=== PATIENT | female | born 1955 | race Caucasian/White ===

== ENCOUNTER → 2017-11-19 | Outpatient (CLI) | payer SELFPAY ==
[~2017-11-19] MED LIST: ABAC300; ASCO500 PO; ASPI81CH PO; Azopt10 ML LEFTEYE; CALACE667G PO; CALCIUM 500 +1 EAC2 PO; CALCIUM CARBON PO; CALCIUM PO; CHOL10002 PO; Diclofenac Sod2.5 ML OD; HYDR1TAB94 PO; Humalog100 UNIT/1; INSUASPI SC; INSULANPEN; INSULANPEN SQ; LATA.005SO LEFTEYE; LEVO750 PO; Lisinopril2.5 MG; Lisinopril2.5 MG PO
[2017-11-19 11:23] LABS: Alanine Aminotransfer (ALT/SGP 190 U/L (12-78); Albumin, Blood 3.3 g/dL (3.4-5.0); Albumin/Globulin Ratio 0.9 (0.8-1.8); Alk Phos 774 U/L (50-136); Anion Gap 8 mmol/L (6-16); Aspartate Aminotrans (AST/SGOT 140 U/L (12-37); Blood Urea Nitrogen 22 mg/dL (8-24); Bun/Creatinine Ratio 35.7 (12.0-20.0); CO2, Blood 29 mmol/L (21-32); Chloride, Blood 101 mmol/L (98-108); Creatinine, Blood 0.62 mg/dL (0.40-1.00); Globulin, Blood 3.8 g/dL (2.2-4.0); Glomerular Filtration Rate >60 (60-); Glucose, Blood 218 mg/dL (70-99); Potassium, Blood 4.4 mmol/L (3.5-5.5); Sodium, Blood 138 mmol/L (136-145); Total Protein, Blood 7.1 g/dL (6.4-8.2)
== END ==
LOC: LAB SHORT 10:48
PROVIDERS: Internal Medicine Hematology & Oncology
DX: C64.9 Malignant neoplasm of unspecified kidney, except renal pelvis (principal); R53.83 Other fatigue
CPT/HCPCS: 80053

== ENCOUNTER → 2018-01-30 | Outpatient (CLI) | payer SELFPAY ==
[~2018-01-30] MED LIST changes: -CALCIUM 500 +1 EAC2 PO; -CHOL10002 PO; -Humalog100 UNIT/1; -Lisinopril2.5 MG PO
[2018-02-04 13:10] LABS: HEMATOCRIT 35.3 % (34.0-46.6)
== END ==
LOC: LAB SHORT 15:45 → OLS 15:45
PROVIDERS: Internal Medicine
DX: D75.89 Other specified diseases of blood and blood-forming organs (principal)
CPT/HCPCS: 36415; 82607; 82747; 85014

== ENCOUNTER 2018-11-30 11:29 | Inpatient (IN) | payer OTHER ==
[~2018-11-30] VITALS: Ht 139.7 cm; Wt 46.0 kg
[~2018-11-30 11:29] MED LIST changes: +CALCIUM 500 +1 EAC2 PO; +CHOL10002 PO; +Humalog100 UNIT/1; +Lisinopril2.5 MG PO
[2018-11-30 12:03] LABS: PCO2 Venous 36 mmHg (38-42); PO2 Venous 175 mmHg (38-42); pH Blood Venous 7.21 (7.34-7.37)
[2018-11-30 12:04] LABS: Base Excess Venous -13.2 mmol/L; Bicarbonate Venous 14.9 mmol/L (24.0-30.0)
[2018-11-30 12:15] LABS: BASOPHILS ABSOLUTE AUTO 0.05 K/mm3 (0.00-0.23); BASOPHILS PERCENT AUTO 0 % (0-2); EOSINOPHILS ABSOLUTE AUTO 0.01 K/mm3 (0.00-0.68); EOSINOPHILS PERCENT AUTO 0 % (0-6); Hematocrit 38.3 % (33.0-51.0); IMMATURE GRAN ABSOLUTE AUTO 0.27 K/mm3 (0.00-0.10); IMMATURE GRAN PERCENT AUTO 2 % (0-1); LYMPHOCYTES ABSOLUTE AUTO 0.95 K/mm3 (0.84-5.20); LYMPHOCYTES PERCENT AUTO 6 % (21-46); MONOCYTES ABSOLUTE AUTO 0.92 K/mm3 (0.16-1.47); MONOCYTES PERCENT AUTO 6 % (4-13); Mean Corpuscular HGB 32.6 pg (26.0-34.0); Mean Corpuscular HGB Conc 31.3 g/dL (31.5-36.5); Mean Corpuscular Volume 104 fL (80-100); NEUTROPHILS ABSOLUTE AUTO 13.85 K/mm3 (1.96-9.15); NEUTROPHILS PERCENT AUTO 86 % (41-73); RDW Coefficient Variation 12.5 % (11.7-14.2); RDW Standard Deviation 47.8 fL (35.1-46.3); Red Blood Cell Count 3.68 M/mm3 (3.80-5.20); White Blood Cell Count 16.05 K/mm3 (4.00-11.30)
[2018-11-30 12:19] LABS: Mean Platelet Volume 10.8 fL (9.1-12.4); Platelet Count 234 K/mm3 (150-400)
[2018-11-30 12:42] LABS: Alanine Aminotransfer (ALT/SGP 163 U/L (12-78); Albumin, Blood 3.1 g/dL (3.4-5.0); Albumin/Globulin Ratio 0.7 (0.8-1.8); Alk Phos 766 U/L (50-136); Anion Gap 23 mmol/L (6-16); Aspartate Aminotrans (AST/SGOT 104 U/L (12-37); Bilirubin, Total 2.2 mg/dL (0.1-1.0); Blood Urea Nitrogen 38 mg/dL (8-24); Bun/Creatinine Ratio 53.2 (12.0-20.0); CO2, Blood 15 mmol/L (21-32); Calcium, Blood 9.6 mg/dL (8.5-10.1); Chloride, Blood 95 mmol/L (98-108); Creatinine, Blood 0.71 mg/dL (0.40-1.00); Globulin, Blood 4.5 g/dL (2.2-4.0); Glomerular Filtration Rate >60 (60-); Glucose, Blood 591 mg/dL (70-99); Potassium, Blood 5.2 mmol/L (3.5-5.5); Sodium, Blood 133 mmol/L (136-145); Total Protein, Blood 7.6 g/dL (6.4-8.2)
--- NOTE | 2018-11-30 15:45 | NUR ---
REPORT RECEIVED REPORT RECEIVED FROM TAMMIE COOLEY RN.
[2018-11-30] MEDS ORDERED: METO25ER PO (16:24)
--- NOTE | 2018-11-30 17:01 | NUR ---
PROVIDER COMMUNICATION ORDERS CLARIFIED WITH DR. MARTINEZ FOR FLUIDS. CONFIRMED 2 LITERS BOLUS PLUS 250 ML/HR FOR ONE LITER.
--- NOTE | 2018-11-30 19:00 | NUR ---
ARRIVAL TO ICU PT ARRIVED TO ICU 6 APPROX 1600. INSULIN GTT INFUSING ON ARRIVAL. VITALS STABLE, SEE FLOWSHEET. SEE ASSESSMENT. PT ABLE TO ASSIST WITH COMPLETION OF ADMISSION HX, MED REC BASED OFF MEMORY. MED REC COMPLETED WITH EXCEPTION OF ONE MEDICATION, PT IS UNSURE OF HER RANITIDINE DOSE AND WILL FOLLOW UP WITH HER .
[2018-11-30 19:12] LABS: Anion Gap 23 mmol/L (6-16); Blood Urea Nitrogen 39 mg/dL (8-24); Bun/Creatinine Ratio 58.8 (12.0-20.0); CO2, Blood 10 mmol/L (21-32); Calcium, Blood 8.2 mg/dL (8.5-10.1); Chloride, Blood 103 mmol/L (98-108); Creatinine, Blood 0.66 mg/dL (0.40-1.00); Glomerular Filtration Rate >60 (60-); Glucose, Blood 469 mg/dL (70-99); Magnesium, Blood 1.6 mg/dL (1.6-2.4); Phosphorus, Blood 3.7 mg/dL (2.5-4.9); Potassium, Blood 4.4 mmol/L (3.5-5.5); Sodium, Blood 136 mmol/L (136-145)
--- NOTE | 2018-11-30 20:15 | NUR ---
PROVIDER COMMUNICATION RECEIVED PHONE CALL FROM DR. MARTINEZ REGARDING PT'S LAB VALUES. DR. MARTINEZ UPDATED ON PT'S FLUID STATUS AND NEW ORDER RECEIVED FOR ADDITIONAL NS BOLUS.
[2018-11-30 21:31] LABS: Anion Gap 10 mmol/L (6-16); Blood Urea Nitrogen 34 mg/dL (8-24); Bun/Creatinine Ratio 52.7 (12.0-20.0); CO2, Blood 20 mmol/L (21-32); Calcium, Blood 6.8 mg/dL (8.5-10.1); Chloride, Blood 111 mmol/L (98-108); Creatinine, Blood 0.65 mg/dL (0.40-1.00); Glomerular Filtration Rate >60 (60-); Glucose, Blood 303 mg/dL (70-99); Magnesium, Blood 1.7 mg/dL (1.6-2.4); Phosphorus, Blood 2.4 mg/dL (2.5-4.9); Potassium, Blood 4.4 mmol/L (3.5-5.5); Sodium, Blood 141 mmol/L (136-145)
--- NOTE | 2018-11-30 22:08 | NUR ---
PROVIDER COMMUNICATION DR. JUAREZ CONTACTED ABOUT PT'S CALCIUM AND PHOS. STATES SHE WILL REVIEW AND PUT IN ORDERS.
[2018-11-30 22:33] LABS: Source, Urine Clean Catch
[2018-11-30 22:36] LABS: Bilirubin, Urine Neg (Neg); Blood, Urine Neg (Neg); Glucose Qualitative, Urine 4+ (Neg); Ketones, Urine 3+ (Neg); Leukocyte Esterase, Urine Neg (Neg); Nitrite, Urine Neg (Neg); Protein, Urine 2+ (Neg); Urobilinogen, Urine NORM (Normal)
[2018-11-30 22:42] LABS: Appearance, Urine Clear (Clear); Color, Urine Yellow (P-Yellow); Red Blood Cells, Urine 0-2 /hpf (0-2)
[2018-11-30 22:43] LABS: Bacteria Mod /hpf; Squamous Epithelial Cells Not Seen /hpf (Few)
--- NOTE | 2018-12-01 00:33 | NUR ---
INSULIN GTT TITRATION PT'S INSULIN GTT TITRATED PER BLOOD SUGARS. BLOOD SUGARS NOTED TO INCREASE AFTER INITIATION OF SODIUM PHOS IT IS MIXED IN D5W. [facility]ARM[facility] RE-MIX IN NORMAL SALINE, CONTINUING WITH INFUSION PT WAS NEARING NEED FOR D5W 1/2 NORMAL SALINE PER PARAMETERS SET BY DR. MARTINEZ. INSULIN GTT TITRATED ACCORDINGLY. ANION GAP NOTED TO BE CLOSED, CO2 IMPROVING.
[2018-12-01 01:36] LABS: Chloride, Blood 111 mmol/L (98-108); Potassium, Blood 3.9 mmol/L (3.5-5.5); Sodium, Blood 142 mmol/L (136-145)
[2018-12-01 01:37] LABS: Anion Gap 10 mmol/L (6-16); Blood Urea Nitrogen 31 mg/dL (8-24); Bun/Creatinine Ratio 41.9 (12.0-20.0); CO2, Blood 21 mmol/L (21-32); Calcium, Blood 7.3 mg/dL (8.5-10.1); Creatinine, Blood 0.74 mg/dL (0.40-1.00); Glomerular Filtration Rate >60 (60-); Glucose, Blood 305 mg/dL (70-99); Magnesium, Blood 1.5 mg/dL (1.6-2.4); Phosphorus, Blood 3.9 mg/dL (2.5-4.9)
[2018-12-01 05:09] LABS: BASOPHILS ABSOLUTE AUTO 0.01 K/mm3 (0.00-0.23); BASOPHILS PERCENT AUTO 0 % (0-2); EOSINOPHILS ABSOLUTE AUTO 0.01 K/mm3 (0.00-0.68); EOSINOPHILS PERCENT AUTO 0 % (0-6); Hematocrit 29.3 % (33.0-51.0); Hemoglobin 9.4 g/dL (11.5-16.0); IMMATURE GRAN ABSOLUTE AUTO 0.11 K/mm3 (0.00-0.10); IMMATURE GRAN PERCENT AUTO 1 % (0-1); LYMPHOCYTES ABSOLUTE AUTO 1.12 K/mm3 (0.84-5.20); LYMPHOCYTES PERCENT AUTO 7 % (21-46); MONOCYTES ABSOLUTE AUTO 1.24 K/mm3 (0.16-1.47); MONOCYTES PERCENT AUTO 8 % (4-13); Mean Corpuscular HGB 32.5 pg (26.0-34.0); Mean Corpuscular HGB Conc 32.1 g/dL (31.5-36.5); Mean Platelet Volume 9.9 fL (9.1-12.4); NEUTROPHILS ABSOLUTE AUTO 13.65 K/mm3 (1.96-9.15); NEUTROPHILS PERCENT AUTO 85 % (41-73); Platelet Count 131 K/mm3 (150-400); RDW Coefficient Variation 12.8 % (11.7-14.2); RDW Standard Deviation 47.9 fL (35.1-46.3); Red Blood Cell Count 2.89 M/mm3 (3.80-5.20); White Blood Cell Count 16.14 K/mm3 (4.00-11.30)
[2018-12-01 05:16] LABS: Mean Corpuscular Volume 101 fL (80-100)
[2018-12-01 05:39] LABS: Anion Gap 10 mmol/L (6-16); Blood Urea Nitrogen 27 mg/dL (8-24); Bun/Creatinine Ratio 36.7 (12.0-20.0); CO2, Blood 19 mmol/L (21-32); Calcium, Blood 7.3 mg/dL (8.5-10.1); Chloride, Blood 111 mmol/L (98-108); Creatinine, Blood 0.74 mg/dL (0.40-1.00); Glomerular Filtration Rate >60 (60-); Glucose, Blood 211 mg/dL (70-99); Magnesium, Blood 1.7 mg/dL (1.6-2.4); Phosphorus, Blood 3.5 mg/dL (2.5-4.9); Potassium, Blood 3.5 mmol/L (3.5-5.5); Sodium, Blood 140 mmol/L (136-145)
--- NOTE | 2018-12-01 06:34 | NUR ---
SUMMARY SINCE PREVIOUS NOTE, PT HAS BEEN PLACED ON D5 1/2 NS PER ORDERS. INSULIN GTT TITRATED PER BLOOD SUGARS. VITALS STABLE. SEE ASSESSMENTS/FLOWSHEETS.
--- NOTE | 2018-12-01 08:00 | NUR ---
INITIAL ASSESSMENT PATIENT RESTING QUIETLY IN BED UPON ENTERING ROOM. PATIENT ALERT AND ORIENTED X 4, AFEBRILE. PATIENT WEAK, SBA WHEN OOB. PATIENT INDEPENDENT IN BED. PATIENT AFEBRILE. PATIENT DENIES PAIN AT THIS TIME. PATIENT SATTING OVER 90% ON RA. LUNGS CLEAR THROUGHOUT. PATIENT REPORTS OCCASIONAL, NONPRODUCTIVE COUGH. PATIENT HAS SLIGHT SOB WITH EXERTION. PATIENT IN SR WITH PACS. SLIGHT ST DEPRESSION NOTED. HR IN THE 80S, BP STABLE. PULSES 1+ IN STRENGTH. NO EDEMA NOTED. GI WNL. WNL. 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 PATIENT HAS SCATTERED BRUISES AND SCABS. INSULIN INFUSING AT 2 UNITS/ HOUR. BED LOW, CALL LIGHT IN REACH. WILL CONTINUE TO MONITOR PATIENT FREQUENTLY THROUGHOUT SHIFT.
[2018-12-01] MEDS ORDERED: Zantac150 MG PO (08:38)
--- NOTE | 2018-12-01 08:50 | NUR ---
DR. MARTINEZ IN TO SEE PATIENT. DR INFORMED OF ST DEPRESSION, OF LOW CALCIUM LEVEL AND THAT PATIENT TAKES METOPROLOL AT HOME. ORDERS RECEIVED.
--- NOTE | 2018-12-01 12:00 | NUR ---
PATIENT WATCHING TV IN BED. NO COMPLAINTS. AFEBRILE. PATIENT REMAINS SATTING WELL ON RA. PATIENT IN SR WITH PACS. HR IN THE 70S. BP STABLE. PATIENT COVERED WITH SLIDING SCALE INSULIN. DRIP TURNED OFF EARLIER IN THE SHIFT. NO OTHER ACUTE CHANGES TO NOTE ON AT THIS TIME. WILL CONTINUE TO MONITOR.
[2018-12-01 12:24] LABS: Albumin, Blood 2.2 g/dL (3.4-5.0); Anion Gap 9 mmol/L (6-16); Blood Urea Nitrogen 23 mg/dL (8-24); Bun/Creatinine Ratio 32.8 (12.0-20.0); CO2, Blood 18 mmol/L (21-32); Calcium, Blood 7.4 mg/dL (8.5-10.1); Chloride, Blood 111 mmol/L (98-108); Glomerular Filtration Rate >60 (60-); Glucose, Blood 269 mg/dL (70-99); Magnesium, Blood 1.6 mg/dL (1.6-2.4); Phosphorus, Blood 2.5 mg/dL (2.5-4.9); Potassium, Blood 4.1 mmol/L (3.5-5.5); Sodium, Blood 138 mmol/L (136-145)
[2018-12-01 15:13] LABS: Influenza A Negative (NEGATIVE); Influenza B Negative (NEGATIVE)
--- NOTE | 2018-12-01 16:52 | NUR ---
RESTING IN BED, VISITING WITH AND WATCHING TV UPON ENTERING ROOM. PATIENT AFEBRILE. PATIENT HAS NO COMPLAINTS OF PAIN. PATIENT REMAINS SATTING WELL ON RA. PATIENT IN SR WITH PACS, HR IN THE 60S. BP STABLE. PATIENT GIVEN SLIDING SCALE INSULIN COVERAGE FOR BS OF 277. NO OTHER ACUTE CHANGES TO NOTE ON AT THIS TIME. WILL CONTINUE TO MONITOR.
--- NOTE | 2018-12-01 18:46 | NUR ---
SHIFT SUMMARY PATIENT REMAINED ALERT AND ORIENTED X 4, AFEBRILE. PATIENT HAD NO COMPLAINTS OF PAIN, EXCEPT SLIGHT SORE THROAT. PATIENT STATES THAT HER HAS BEEN SICK WITH A COLD AT HOME. PATIENT GIVEN LONG ACTING INSULIN THIS AM AND INSULIN DRIP TURNED OFF 1 HOUR LATER. BLOOD SUGARS HAVE BEEN 100S TO 200S. PATIENT ON ACHS- MEDIUM SLIDING SCALE. PATIENT WEAKER THAN USUAL BUT AMBULATING WELL WITH SBA. PATIENT REMAINED SATTING WELL ON RA. PATIENT LUNGS REMAINED CLEAR THROUGHOUT. PATIENT HAS SLIGHT SOB WITH EXERTION. PATIENT REMAINED IN SR WITH PACS, HR 60S TO 80S. BP STABLE. GI REMAINED WNL. PATIENT TOLERATING ADA DIET WELL. REMAINED WNL. NO CHANGES TO SKIN. NS KCL INFUSING AT 100 MLS/ HOUR. PATIENT GIVEN 1 G CALCIUM GLUCONATE THIS SHIFT. INFLUENZA LAB SENT AND CAME BACK NEGATIVE FOR INFLUENZA A AND B. PATIENT HAD SHOWER THIS SHIFT WITH HELP OF ORCHESTRA DIRECTOR. FAMILY MEMBERS IN TO VISIT TODAY. BED LOW, CALL LIGHT IN REACH. WILL CONTINUE TO MONITOR FREQUENTLY UNTIL REPORT GIVEN TO ONCOMING SENIOR SEARCH MARKETING ANALYST NURSE SHORTLY.
--- NOTE | 2018-12-01 20:17 | NUR ---
CARE ASSUMED REPORT RECEIVED, CARE ASSUMED FROM VAISHNAVI CORTEZ. PT AWAKE WATCHING TELEVISION ON NURSING ROUNDS. PROVIDED WITH TEA PER REQUEST. VITALS STABLE. SEE ASSESSMENT. PT AGREES TO USE CALL LIGHT FOR NEEDS.
[2018-12-02 03:53] LABS: BASOPHILS ABSOLUTE AUTO 0.01 K/mm3 (0.00-0.23); BASOPHILS PERCENT AUTO 0 % (0-2); EOSINOPHILS ABSOLUTE AUTO 0.13 K/mm3 (0.00-0.68); EOSINOPHILS PERCENT AUTO 1 % (0-6); Hematocrit 29.9 % (33.0-51.0); Hemoglobin 9.7 g/dL (11.5-16.0); IMMATURE GRAN ABSOLUTE AUTO 0.07 K/mm3 (0.00-0.10); IMMATURE GRAN PERCENT AUTO 1 % (0-1); LYMPHOCYTES PERCENT AUTO 18 % (21-46); MONOCYTES ABSOLUTE AUTO 0.66 K/mm3 (0.16-1.47); MONOCYTES PERCENT AUTO 7 % (4-13); Mean Corpuscular HGB 32.2 pg (26.0-34.0); Mean Corpuscular HGB Conc 32.4 g/dL (31.5-36.5); Mean Corpuscular Volume 99 fL (80-100); Mean Platelet Volume 9.8 fL (9.1-12.4); NEUTROPHILS ABSOLUTE AUTO 6.51 K/mm3 (1.96-9.15); NEUTROPHILS PERCENT AUTO 73 % (41-73); Platelet Count 121 K/mm3 (150-400); RDW Standard Deviation 47.2 fL (35.1-46.3); Red Blood Cell Count 3.01 M/mm3 (3.80-5.20); White Blood Cell Count 8.98 K/mm3 (4.00-11.30)
[2018-12-02 04:13] LABS: Albumin, Blood 2.1 g/dL (3.4-5.0); Anion Gap 7 mmol/L (6-16); Blood Urea Nitrogen 15 mg/dL (8-24); Bun/Creatinine Ratio 23.7 (12.0-20.0); CO2, Blood 22 mmol/L (21-32); Calcium, Blood 8.4 mg/dL (8.5-10.1); Chloride, Blood 114 mmol/L (98-108); Creatinine, Blood 0.63 mg/dL (0.40-1.00); Glomerular Filtration Rate >60 (60-); Glucose, Blood 144 mg/dL (70-99); Magnesium, Blood 1.6 mg/dL (1.6-2.4); Phosphorus, Blood 2.2 mg/dL (2.5-4.9); Sodium, Blood 143 mmol/L (136-145)
--- NOTE | 2018-12-02 06:03 | NUR ---
SUMMARY VITALS STABLE THROUGHOUT NIGHT. ASSESSMENT UNCHANGED. PT HAS SLEPT SOUNDLY THROUGHOUT NIGHT, CALLING FOR NEEDS.
--- NOTE | 2018-12-02 07:52 | NUR ---
INITIAL ASSESSMENT PATIENT RESTING QUIETLY IN BED UPON ENTERING ROOM. PATIENT ALERT AND ORIENTED X 4, AFEBRILE. PATIENT INDEPENDENT IN ROOM. PATIENT HAS NO COMPLAINTS OF PAIN AT THIS TIME. PATIENT SATTING OVER 90% ON RA. LUNGS CLEAR THROUGHOUT. PATIENT HAS OCCASIONAL, NONPRODUCTIVE COUGH. HR IN THE 60S. BP STABLE. GI WNL. WNL. MIDSTERNAL SCAR NOTED. SCATTERED SCABS AND BRUISES NOTED. IVS FLUSHED AND SALINE LOCKED. BED LOW, CALL LIGHT IN REACH. WILL CONTINUE TO MONITOR PATIENT FREQUENTLY THROUGHOUT SHIFT.
[2018-12-02] MEDS ORDERED: ASCO500 PO (11:09)
[2018-12-02] MEDS ORDERED: Humalog100 UNIT/1 SC (11:18)
[2018-12-02] MEDS ORDERED: BENMENLOZ MT (11:20)
[2018-12-02] MEDS ORDERED: Lisinopril2.5 MG PO (11:21)
[2018-12-02] MEDS ORDERED: Acidophilus La100 GM PO (11:22)
[2018-12-02] MEDS ORDERED: LEVFLO500 PO (11:23)
[2018-12-02] MEDS ORDERED: TOUJEO SOL300 UNIT/1 SC (11:29)
--- NOTE | 2018-12-02 11:47 | NUR ---
DR. MARTINEZ INFORMED OF PATIENT'S BLOOD SUGAR OF 474. ALSO INFORMED THAT THE [facility] THAT IS RUNNING HAS DEXTROSE 5% IN IT. ORDERS RECEIVED.
[2018-12-02] MEDS ORDERED: SACC250C PO (11:52)
--- NOTE | 2018-12-02 12:16 | NUR ---
PATIENT SITTING IN BED EATING LUNCH. PATIENT HAS NO COMPLAINTS AT THIS TIME. PATIENT GIVEN SCHEDULED AND ADDITIONAL OT COVERAGE FOR BLOOD SUGAR OF 474. KPHOS WITH DEXTROSE CONTINUES TO INFUSE. NO OTHER ACUTE CHANGES TO NOTE ON AT THIS TIME. WILL CONTINUE TO MONITOR.
--- NOTE | 2018-12-02 14:34 | NUR ---
DR. MARTINEZ INFORMED THAT PATIENT'S BS IS NOW 375. ALSO INFORMED THAT KPHOS WITH DEXTROSE FINISHED SHORT TIME AGO. DOCTOR STATED TO GIVE INSULIN LISPRO BY [facility] AND THEN PATIENT ABLE TO BE DISCHARGED.
--- NOTE | 2018-12-02 15:02 | NUR ---
SHIFT SUMMARY PATIENT REMAINED ALERT AND ORIENTED T/O SHIFT. PATIENT REMAINED AFEBRILE AND HAD NO COMPLAINTS OF PAIN. PATIENT REMAINED SATTING WELL ON RA. PATIENT HR AND BP STABLE/ WNL. GI WNL. PATIENT HAD BM THIS SHIFT. WNL. NO CHANGE IN SKIN. PATIENT RECEIVED 30 MM KPHOS FOR LOW PHOS LEVEL OF 2.2 THIS AM. PATIENT COVERED WITH INSULIN LISPRO ON MEDIUM SLIDING SCALE ACHS. PATIENT BLOOD SUGARS INCREASED WHILE ON KPHOS INFUSING INFUSION ALSO HAS DEXTROSE 5% IN IT. DR. MARTINEZ INFORMED AND INSULIN GIVEN ACCORDINGLY. HERE TO NEUROSCIENCE SPECIALIST PATIENT. IVS REMOVED. PATIENT GIVEN DISCHARGE INFORMATION AND STATED THAT SHE UNDERSTOOD DIRECTIONS AND HAD NO FURTHER QUESTIONS. PATIENT TAKEN OUT TO TRUCK IN WHEELCHAIR AT 1502.
== END 2018-12-02 14:58 | disposition home or self-care (01) | DRG 871 ==
LOC: ER 11:29 → ERHOLD 13:38 → ICUE 13:38
PROVIDERS: Physician Assistant; ADMIT Internal Medicine
DX: A41.9 Sepsis, unspecified organism (principal); E10.10 Type 1 diabetes mellitus with ketoacidosis without coma; J18.1 Lobar pneumonia, unspecified organism; J69.0 Pneumonitis due to inhalation of food and vomit; T85.694A Other mechanical complication of insulin pump, initial encounter; E87.1 Hypo-osmolality and hyponatremia; R65.20 Severe sepsis without septic shock; E10.59 Type 1 diabetes mellitus with other circulatory complications; E83.39 Other disorders of phosphorus metabolism; E83.42 Hypomagnesemia; I25.10 Atherosclerotic heart disease of native coronary artery without angina pectoris; M25.511 Pain in right shoulder; M25.512 Pain in left shoulder; M81.0 Age-related osteoporosis without current pathological fracture; Z95.1 Presence of aortocoronary bypass graft; I10 Essential (primary) hypertension; K21.9 Gastro-esophageal reflux disease without esophagitis
CPT/HCPCS: 36415; 71045; 71046; 80048; 80053; 80069; 81001; 82330; 82803; 82947; 83036; 83605; 83735; 84100; 84145; 84484; 85025; 87086; 87804; 93005; 93010; 96361; 96365; 96367; 96375; 96376; 99285-25; C9113; J0456; J0610; J0696; J1650; J1815; J1956; J2405; J3480; J7030; J7042; J7050; J7060

== ENCOUNTER → 2019-02-09 | Outpatient (CLI) | payer OTHER ==
[~2019-02-09] MED LIST changes: +Acidophilus La100 GM PO; +BENMENLOZ MT; +Humalog100 UNIT/1 SC; +LEVFLO500 PO; +METO25ER PO; +SACC250C PO; +TOUJEO SOL300 UNIT/1 SC; +Zantac150 MG PO
[2019-02-09 10:56] LABS: Alanine Aminotransfer (ALT/SGP 148 U/L (12-78); Albumin, Blood 3.2 g/dL (3.4-5.0); Albumin/Globulin Ratio 0.8 (0.8-1.8); Alk Phos 746 U/L (50-136); Anion Gap 5 mmol/L (6-16); Aspartate Aminotrans (AST/SGOT 90 U/L (12-37); Bilirubin, Total 1.1 mg/dL (0.1-1.0); Blood Urea Nitrogen 29 mg/dL (8-24); Bun/Creatinine Ratio 47.5 (12.0-20.0); CO2, Blood 30 mmol/L (21-32); Calcium, Blood 9.3 mg/dL (8.5-10.1); Chloride, Blood 103 mmol/L (98-108); Creatinine, Blood 0.61 mg/dL (0.40-1.00); Globulin, Blood 3.8 g/dL (2.2-4.0); Glomerular Filtration Rate >60 (60-); Glucose, Blood 122 mg/dL (70-99); Sodium, Blood 138 mmol/L (136-145)
== END | disposition home or self-care (01) ==
LOC: LAB 10:26 → LAB SHORT 10:26
PROVIDERS: Internal Medicine Hematology & Oncology
DX: C64.9 Malignant neoplasm of unspecified kidney, except renal pelvis (principal); M81.0 Age-related osteoporosis without current pathological fracture
CPT/HCPCS: 80053

== ENCOUNTER → 2019-04-05 | Outpatient (CLI) | payer OTHER | END | disposition home or self-care (01) | LOC: PLD 08:45 → LAB SHORT 08:45 | DX: L57.0 Actinic keratosis (principal) | CPT/HCPCS: 88305 ==

== ENCOUNTER → 2019-06-03 | Outpatient (CLI) | payer OTHER ==
[2019-06-03 13:21] LABS: Microalb/Creat Ratio UR, Rand Unable to Calculate mg/g (0.000-30.000); Microalbumin, Random Urine <5.000 mg/L (0.000-20.000)
== END | disposition home or self-care (01) ==
LOC: LAB SHORT 08:00 → LAB 08:00
PROVIDERS: Internal Medicine
DX: Z11.59 Encounter for screening for other viral diseases (principal); E11.8 Type 2 diabetes mellitus with unspecified complications; E55.9 Vitamin D deficiency, unspecified; E78.5 Hyperlipidemia, unspecified; Z79.899 Other long term (current) drug therapy
CPT/HCPCS: 82043; 82570

== ENCOUNTER 2019-06-24 09:36 | Day surgery (SDC) | payer OTHER ==
[~2019-06-24] VITALS: Ht 142.2 cm; Wt 40.2 kg
--- NOTE | 2019-06-24 11:50 | NUR ---
06/24/19 1150 Nicolasa Peterson DONE IN PRE OP BY DR AGEE WITH SONOSITE. PT'S HEART RATE AND O2 SATS MONITORED THROUGHOUT. PT TOLERATED PROCEDURE WELL.
--- NOTE | 2019-06-24 13:53 | NUR ---
06/24/19 1353 Maggie Daniels PT TRANSFERED WELL FROM BED TO RECLINER. PT HAS ARM SLING ON. PT DENIES ANY PAIN, PT DENIES ANY N/V. VS WNL. PT FAMILY AT CHAIR SIDE CONVERSING WITH PT. PT SMILING AND TOLERATING COFFEE. PT C/O UNABLE TO MOVE RIGHT ARM, RN RE-ASSURED PT THAT SHE HAS A SLING ON AND THAT DR. AGEE HAD PLACED A NUMBING BLOCK ON THAT ARM. PT ABLE TO HAVE SENSATION ON RIGHT UPPER ARM. PT AT THIS TIME, UNABLE TO MOVE FINGERS ON RIGHT HAND. WILL CONTINUE TO MONITOR. CAP RE-FILL ON RIGHT HAND LESS THAN 3SECS. WILL CONTINUE TO MONITOR PT.
== END 2019-06-24 15:09 | disposition home or self-care (01) ==
LOC: ORSCSDS 09:36
PROVIDERS: Orthopaedic Surgery
PROC: 0LQ14ZZ Repair Right Shoulder Tendon, Percutaneous Endoscopic Approach (ICD-10-PCS; principal; 2019-06-24 11:00)
PROC: 0RNJ4ZZ Release Right Shoulder Joint, Percutaneous Endoscopic Approach (ICD-10-PCS; principal; 2019-06-24 11:00)
DX: S46.001A Unspecified injury of muscle(s) and tendon(s) of the rotator cuff of right shoulder, initial encounter (principal); M75.41 Impingement syndrome of right shoulder; M75.21 Bicipital tendinitis, right shoulder; M65.811 Other synovitis and tenosynovitis, right shoulder; E10.9 Type 1 diabetes mellitus without complications; I10 Essential (primary) hypertension; Z79.4 Long term (current) use of insulin; Z79.82 Long term (current) use of aspirin; Z79.899 Other long term (current) drug therapy
CPT/HCPCS: 82947; C1713; J0171; J0690; J2250; J2704; J3010; J7120

== ENCOUNTER 2020-03-22 19:54 | Emergency (ER) | payer OTHER ==
[~2020-03-22] VITALS: Ht 139.7 cm; Wt 41.3 kg
[~2020-03-22 19:54] MED LIST changes: +BASAGLAR K100 UNIT/1 SC; +EYEDROPS; +FAMO20 PO; +HUMALOG KW200 UNIT/1 SC
[2020-03-22 20:52] LABS: BASOPHILS ABSOLUTE AUTO 0.04 K/mm3 (0.00-0.23); BASOPHILS PERCENT AUTO 1 % (0-2); EOSINOPHILS ABSOLUTE AUTO 0.07 K/mm3 (0.00-0.68); EOSINOPHILS PERCENT AUTO 1 % (0-6); Hemoglobin 11.9 g/dL (11.5-16.0); IMMATURE GRAN ABSOLUTE AUTO 0.05 K/mm3 (0.00-0.10); IMMATURE GRAN PERCENT AUTO 1 % (0-1); LYMPHOCYTES ABSOLUTE AUTO 1.27 K/mm3 (0.84-5.20); LYMPHOCYTES PERCENT AUTO 18 % (21-46); MONOCYTES ABSOLUTE AUTO 0.68 K/mm3 (0.16-1.47); MONOCYTES PERCENT AUTO 10 % (4-13); Mean Corpuscular HGB 32.4 pg (26.0-34.0); Mean Corpuscular HGB Conc 32.2 g/dL (31.5-36.5); Mean Corpuscular Volume 101 fL (80-100); Mean Platelet Volume 10.7 fL (9.1-12.4); NEUTROPHILS ABSOLUTE AUTO 4.98 K/mm3 (1.96-9.15); NEUTROPHILS PERCENT AUTO 70 % (41-73); Platelet Count 193 K/mm3 (150-400); RDW Coefficient Variation 12.6 % (11.7-14.2); RDW Standard Deviation 45.9 fL (35.1-46.3); Red Blood Cell Count 3.67 M/mm3 (3.80-5.20); White Blood Cell Count 7.09 K/mm3 (4.00-11.30)
[2020-03-22 20:57] LABS: Base Excess Venous 2.2 mmol/L; PCO2 Venous 42.4 mmHg (38-42); PO2 Venous 62.1 mmHg (38-42); pH Blood Venous 7.41 (7.34-7.37)
[2020-03-22] MEDS ORDERED: TOUJEO SOL300 UNIT/2 SC (21:25)
[2020-03-22 21:44] LABS: Alanine Aminotransfer (ALT/SGP 117 U/L (12-78); Albumin, Blood 3.1 g/dL (3.4-5.0); Albumin/Globulin Ratio 0.7 (0.8-1.8); Alk Phos 778 U/L (50-136); Anion Gap 9 mmol/L (6-16); Aspartate Aminotrans (AST/SGOT 65 U/L (12-37); Bilirubin, Total 0.8 mg/dL (0.1-1.0); Blood Urea Nitrogen 31 mg/dL (8-24); Bun/Creatinine Ratio 44.5 (12.0-20.0); CO2, Blood 23 mmol/L (21-32); Calcium, Blood 8.8 mg/dL (8.5-10.1); Chloride, Blood 98 mmol/L (98-108); Globulin, Blood 4.6 g/dL (2.2-4.0); Glomerular Filtration Rate >60 (60-); Glucose, Blood 464 mg/dL (70-99); Potassium, Blood 4.7 mmol/L (3.5-5.5); Sodium, Blood 130 mmol/L (136-145); Total Protein, Blood 7.7 g/dL (6.4-8.2)
== END 2020-03-22 23:08 | disposition home or self-care (01) ==
LOC: ER 19:54
PROVIDERS: Emergency Medicine
DX: E10.65 Type 1 diabetes mellitus with hyperglycemia (principal); Z88.8 Allergy status to other drugs, medicaments and biological substances; Z79.82 Long term (current) use of aspirin; Z79.899 Other long term (current) drug therapy; I25.10 Atherosclerotic heart disease of native coronary artery without angina pectoris; I10 Essential (primary) hypertension; K21.9 Gastro-esophageal reflux disease without esophagitis
CPT/HCPCS: 36415; 80053; 82803; 82947; 85025; 96360; 99284-25; J1815; J7030

== ENCOUNTER → 2020-12-22 | Outpatient (CLI) | payer OTHER ==
[~2020-12-22] MED LIST changes: +REPATHA SU140 MG/1 M SC; +TOUJEO SOL300 UNIT/2 SC
[2020-12-22 16:10] LABS: Creatinine, Urine Random 94.6 mg/dL (27.00-270.00); Microalb/Creat Ratio UR, Rand 11.311 mg/g (0.000-30.000); Microalbumin, Random Urine 10.7 mg/L (0.000-20.000)
== END | disposition home or self-care (01) ==
LOC: LAB 10:25 → LAB SHORT 10:25 → LAB FUT 11-06 08:45
PROVIDERS: Internal Medicine
DX: E55.9 Vitamin D deficiency, unspecified (principal); I10 Essential (primary) hypertension; Z79.899 Other long term (current) drug therapy
CPT/HCPCS: 82043; 82570

== ENCOUNTER → 2021-02-05 | Outpatient (CLI) | payer OTHER ==
[2021-02-09 10:09] LABS: IMMUNOGLOBULIN A, QN, SERUM 185 mg/dL (87-352); IMMUNOGLOBULIN G, QN, SERUM 531 mg/dL (586-1602); IMMUNOGLOBULIN M, QN, SERUM 1499 mg/dL (26-217); PROTEIN, TOTAL, SERUM 6.6 g/dL (6.0-8.5)
== END | disposition home or self-care (01) ==
LOC: LAB SHORT 10:30 → PLD 10:30
PROVIDERS: Internal Medicine Hematology & Oncology
DX: D47.2 Monoclonal gammopathy (principal)
CPT/HCPCS: 82784; 84165; 86334

== ENCOUNTER → 2021-04-24 | Outpatient (CLI) | payer OTHER | END | disposition home or self-care (01) | LOC: LAB SHORT 11:25 | DX: L82.1 Other seborrheic keratosis (principal) | CPT/HCPCS: 88305 ==

== ENCOUNTER → 2021-06-15 | Outpatient (CLI) | payer OTHER ==
[2021-06-15 11:09] LABS: Alanine Aminotransfer (ALT/SGP 104 U/L (12-78); Albumin, Blood 3.3 g/dL (3.4-5.0); Albumin/Globulin Ratio 0.8 (0.8-1.8); Alk Phos 639 U/L (50-136); Anion Gap 6 mmol/L (6-16); Aspartate Aminotrans (AST/SGOT 63 U/L (12-37); Blood Urea Nitrogen 25 mg/dL (8-24); Bun/Creatinine Ratio 32.2 (12.0-20.0); CO2, Blood 28 mmol/L (21-32); Calcium, Blood 9.6 mg/dL (8.5-10.1); Chloride, Blood 106 mmol/L (98-108); Creatinine, Blood 0.78 mg/dL (0.40-1.00); Glomerular Filtration Rate >60 (60-); Phosphorus, Blood 4.1 mg/dL (2.5-4.9); Potassium, Blood 3.9 mmol/L (3.5-5.5); Sodium, Blood 140 mmol/L (136-145); Total Protein, Blood 7.3 g/dL (6.4-8.2)
[2021-06-15 11:11] LABS: Glucose, Blood 39 mg/dL (70-99)
== END | disposition home or self-care (01) ==
LOC: LAB 10:33 → LAB SHORT 10:33
PROVIDERS: Internal Medicine Hematology & Oncology
DX: D47.2 Monoclonal gammopathy (principal)
CPT/HCPCS: 80053; 84100

== ENCOUNTER 2021-09-17 19:01 | Emergency (ER) | payer OTHER ==
[~2021-09-17] VITALS: Ht 139.7 cm; Wt 42.2 kg
[2021-09-17 20:31] LABS: BASOPHILS ABSOLUTE AUTO 0.04 K/mm3 (0.00-0.23); BASOPHILS PERCENT AUTO 0 % (0-2); EOSINOPHILS ABSOLUTE AUTO 0.02 K/mm3 (0.00-0.68); EOSINOPHILS PERCENT AUTO 0 % (0-6); Hematocrit 37.4 % (33.0-51.0); Hemoglobin 12.5 g/dL (11.5-16.0); IMMATURE GRAN ABSOLUTE AUTO 0.09 K/mm3 (0.00-0.10); IMMATURE GRAN PERCENT AUTO 1 % (0-1); LYMPHOCYTES ABSOLUTE AUTO 0.82 K/mm3 (0.84-5.20); LYMPHOCYTES PERCENT AUTO 5 % (21-46); MONOCYTES ABSOLUTE AUTO 0.93 K/mm3 (0.16-1.47); MONOCYTES PERCENT AUTO 6 % (4-13); Mean Corpuscular HGB 31.1 pg (26.0-34.0); Mean Corpuscular HGB Conc 33.4 g/dL (31.5-36.5); Mean Corpuscular Volume 93 fL (80-100); NEUTROPHILS ABSOLUTE AUTO 13.85 K/mm3 (1.96-9.15); NEUTROPHILS PERCENT AUTO 88 % (41-73); RDW Coefficient Variation 12.7 % (11.7-14.2); RDW Standard Deviation 44.1 fL (35.1-46.3); Red Blood Cell Count 4.02 M/mm3 (3.80-5.20); White Blood Cell Count 15.75 K/mm3 (4.00-11.30)
[2021-09-17 20:40] LABS: Source, Urine Clean Catch
[2021-09-17 20:42] LABS: Bilirubin, Urine Neg (Neg); Blood, Urine 2+ (Neg); Glucose Qualitative, Urine 1+ (Neg); Ketones, Urine 1+ (Neg); Leukocyte Esterase, Urine 1+ (Neg); Nitrite, Urine Neg (Neg); Protein, Urine 1+ (Neg); Specific Gravity, Urine 1.025 (1.003-1.022); Urobilinogen, Urine 1+ (Normal)
[2021-09-17 20:52] LABS: Appearance, Urine Clear (Clear); Color, Urine Yellow (P-Yellow)
[2021-09-17 20:56] LABS: Amorphous Light (0-Heavy); Bacteria Few /hpf; Mucus Light (0-Heavy); Squamous Epithelial Cells Rare /hpf (Few)
[2021-09-17 20:59] LABS: Mean Platelet Volume 10.9 fL (9.1-12.4); Platelet Count 160 K/mm3 (150-400)
[2021-09-17] MEDS ORDERED: TOUJEO MAX300 UNIT/2 SC (21:05)
[2021-09-17] MEDS ORDERED: HUMALOG KW200 UNIT/2 SC (21:06)
[2021-09-17 21:10] LABS: Alanine Aminotransfer (ALT/SGP 117 U/L (12-78); Albumin, Blood 3.1 g/dL (3.4-5.0); Albumin/Globulin Ratio 0.8 (0.8-1.8); Alk Phos 657 U/L (50-136); Anion Gap 10 mmol/L (6-16); Aspartate Aminotrans (AST/SGOT 73 U/L (12-37); Blood Urea Nitrogen 24 mg/dL (8-24); Bun/Creatinine Ratio 34.6 (12.0-20.0); CO2, Blood 26 mmol/L (21-32); Calcium, Blood 9.2 mg/dL (8.5-10.1); Chloride, Blood 101 mmol/L (98-108); Creatinine, Blood 0.69 mg/dL (0.40-1.00); Globulin, Blood 4.1 g/dL (2.2-4.0); Glomerular Filtration Rate >60 (60-); Glucose, Blood 223 mg/dL (70-99); Potassium, Blood 4.2 mmol/L (3.5-5.5); Sodium, Blood 137 mmol/L (136-145); Total Protein, Blood 7.2 g/dL (6.4-8.2)
[2021-09-18] MEDS ORDERED: AMOCLA875 PO (00:21)
[2021-09-18] MEDS ORDERED: ONDA4ODT MM (00:21)
== END 2021-09-18 00:48 | disposition home or self-care (01) ==
LOC: ER 19:01
PROVIDERS: Physician Assistant
DX: K57.32 Diverticulitis of large intestine without perforation or abscess without bleeding (principal); E11.9 Type 2 diabetes mellitus without complications; I10 Essential (primary) hypertension; K21.9 Gastro-esophageal reflux disease without esophagitis; Z79.4 Long term (current) use of insulin
CPT/HCPCS: 36415; 74177; 80053; 81001; 83605; 85025; 87086; 96374; 96375; 99284-25; A9270; J2270; J2405; J7030; Q9967

== ENCOUNTER 2022-05-19 03:37 | Emergency (ER) | payer OTHER ==
[~2022-05-19] VITALS: Ht 139.7 cm; Wt 42.6 kg
[~2022-05-19 03:37] MED LIST changes: +AMOCLA875 PO; +HUMALOG KW200 UNIT/2 SC; +ONDA4ODT MM; +TOUJEO MAX300 UNIT/2 SC
[2022-05-19 08:45] LABS: Hematocrit 35.1 % (33.0-51.0); Hemoglobin 11.8 g/dL (11.5-16.0); Mean Corpuscular HGB 32.1 pg (26.0-34.0); Mean Corpuscular HGB Conc 33.6 g/dL (31.5-36.5); Mean Corpuscular Volume 95 fL (80-100); Mean Platelet Volume 12.1 fL (9.1-12.4); Platelet Count 71 K/mm3 (150-400); RDW Coefficient Variation 12.8 % (11.7-14.2); RDW Standard Deviation 44.8 fL (35.1-46.3); Red Blood Cell Count 3.68 M/mm3 (3.80-5.20); White Blood Cell Count 13.77 K/mm3 (4.00-11.30)
[2022-05-19 08:59] LABS: Bun/Creatinine Ratio 34.1 (12.0-20.0); Calcium, Blood 8.7 mg/dL (8.5-10.1); Creatinine, Blood 0.76 mg/dL (0.40-1.00); Potassium, Blood 4.1 mmol/L (3.5-5.5)
[2022-05-19 09:08] LABS: BAND PERCENT MAN 22 % (0-8); BASOPHILS PERCENT MAN 0 % (0-2); EOSINOPHILS PERCENT MAN 0 % (0-6); LYMPHOCYTES ABSOLUTE MAN 0.96 K/mm3 (0.84-5.20); LYMPHOCYTES PERCENT MAN 7 % (21-46); MONOCYTES ABSOLUTE MAN 0.96 K/mm3 (0.16-1.47); MONOCYTES PERCENT MAN 7 % (4-13); NEUTROPHILS ABSOLUTE MAN 11.84 K/mm3 (1.96-9.15); SEG NEUTROPHILS PERCENT MAN 64 % (41-73); TOTAL CELLS COUNTED 100
[2022-05-19 09:34] LABS: Influenza A, PCR NEGATIVE (NEGATIVE); Influenza B, PCR NEGATIVE (NEGATIVE); Resp Syncytial Virus, PCR NEGATIVE (NEGATIVE); SARS-Cov-2 (COVID-19) PCR, MMC NEGATIVE (NEGATIVE)
[2022-05-19 12:06] LABS: Source, Urine Straight Cath
[2022-05-19 12:11] LABS: Appearance, Urine Clear (Clear); Bilirubin, Urine Neg (Neg); Blood, Urine 1+ (Neg); Color, Urine Yellow (P-Yellow); Glucose Qualitative, Urine Neg (Neg); Ketones, Urine 2+ (Neg); Leukocyte Esterase, Urine Neg (Neg); Nitrite, Urine Neg (Neg); Protein, Urine 1+ (Neg); Urobilinogen, Urine NORM (Normal)
[2022-05-19 12:26] LABS: Bacteria Not Seen /hpf; Red Blood Cells, Urine 0-2 /hpf (0-2); Squamous Epithelial Cells Rare /hpf (Few); Transitional Epithelial Cells Rare /hpf (0-Rare); White Blood Cells, Urine 0-2 /hpf (0-5)
[2022-05-19 17:08] LABS: Adenovirus F 40/41 Not Detected (NOT DETECT); Astrovirus Not Detected (NOT DETECT); Campylobacter Sp Not Detected (NOT DETECT); Cryptosporidium Not Detected (NOT DETECT); Cyclospora Cayetanensis Not Detected (NOT DETECT); E. Coli O157 Not Detected (NOT DETECT); Entamoeba Histolytica Not Detected (NOT DETECT); Enteroaggregative E. coli-EAEC Not Detected (NOT DETECT); Enteropathogenic E. coli-EPEC Not Detected (NOT DETECT); Enterotoxigenic E. coli-ETEC Not Detected (NOT DETECT); Giardia Lamblia Not Detected (NOT DETECT); Norovirus GI/GII Not Detected (NOT DETECT); Plesiomonas Shigelloides Not Detected (NOT DETECT); Rotavirus A Not Detected (NOT DETECT); Salmonella Sp Detected (NOT DETECT); Sapovirus Not Detected (NOT DETECT); Shiga Toxin-prod E. coli-STEC Not Detected (NOT DETECT); Shigella/Enteroin E. coli-EIEC Not Detected (NOT DETECT); Vibrio Cholerae Not Detected (NOT DETECT); Vibrio Sp Not Detected (NOT DETECT); Yersinia Enterocolitica Not Detected (NOT DETECT)
== END 2022-05-19 16:50 | disposition home or self-care (01) ==
LOC: ER 03:37
PROVIDERS: Student in an Organized Health Care Education/Training Program
DX: R53.1 Weakness (principal); R19.7 Diarrhea, unspecified; E86.0 Dehydration; R33.9 Retention of urine, unspecified; E10.65 Type 1 diabetes mellitus with hyperglycemia; I25.10 Atherosclerotic heart disease of native coronary artery without angina pectoris; I10 Essential (primary) hypertension; K21.9 Gastro-esophageal reflux disease without esophagitis; Z88.8 Allergy status to other drugs, medicaments and biological substances; Z79.4 Long term (current) use of insulin; Z79.82 Long term (current) use of aspirin; Z79.899 Other long term (current) drug therapy; Z95.1 Presence of aortocoronary bypass graft; Z20.822 Contact with and (suspected) exposure to COVID-19
CPT/HCPCS: 0241U; 36415; 51702; 51798; 80048; 81001; 82947; 83735; 85025; 87324; 87507; J7030

== ENCOUNTER 2023-11-24 11:44 | Inpatient (IN) | payer OTHER ==
[~2023-11-24] VITALS: Ht 139.7 cm; Wt 41.1 kg
[2023-11-24] VITALS (7 sets, daily range): BP systolic 90–111; BP diastolic 46–60
[~2023-11-24 11:44] MED LIST changes: -CALCIUM 500 +1 EAC2 PO; +CALCIUM 600-VI1 EAC4 PO; -CHOL10002 PO; +VITAMIN D31000 UNI1 PO
[2023-11-24] MEDS ORDERED: Ondansetron HCl 2 MG / ML 2ML Vial IV PRN (12:10)
[2023-11-24 12:13] LABS: BASOPHILS ABSOLUTE AUTO 0.05 K/mm3 (0.00-0.23); BASOPHILS PERCENT AUTO 0 % (0-2); EOSINOPHILS ABSOLUTE AUTO 0.01 K/mm3 (0.00-0.68); EOSINOPHILS PERCENT AUTO 0 % (0-6); Hematocrit 32.7 % (33.0-51.0); Hemoglobin 10.1 g/dL (11.5-16.0); IMMATURE GRAN ABSOLUTE AUTO 0.18 K/mm3 (0.00-0.10); IMMATURE GRAN PERCENT AUTO 1 % (0-1); LYMPHOCYTES PERCENT AUTO 3 % (21-46); MONOCYTES ABSOLUTE AUTO 1.19 K/mm3 (0.16-1.47); MONOCYTES PERCENT AUTO 6 % (4-13); Mean Corpuscular HGB 32.2 pg (26.0-34.0); Mean Corpuscular HGB Conc 30.9 g/dL (31.5-36.5); Mean Corpuscular Volume 104 fL (80-100); Mean Platelet Volume 11.5 fL (9.1-12.4); NEUTROPHILS ABSOLUTE AUTO 17.36 K/mm3 (1.96-9.15); NEUTROPHILS PERCENT AUTO 90 % (41-73); Platelet Count 179 K/mm3 (150-400); RDW Coefficient Variation 12.9 % (11.7-14.2); Red Blood Cell Count 3.14 M/mm3 (3.80-5.20); White Blood Cell Count 19.39 K/mm3 (4.00-11.30)
[2023-11-24 12:28] LABS: Base Excess Venous -13.4 mmol/L; Bicarbonate Venous 14.6 mmol/L (24.0-30.0); PCO2 Venous 35.3 mmHg (38-42); pH Blood Venous 7.22 (7.34-7.37)
[2023-11-24 12:43] LABS: Influenza A, PCR NEGATIVE (NEGATIVE); Influenza B, PCR NEGATIVE (NEGATIVE); Resp Syncytial Virus, PCR NEGATIVE (NEGATIVE); SARS-Cov-2 (COVID-19) PCR, MMC NEGATIVE (NEGATIVE)
[2023-11-24] MEDS ORDERED: NS 500 ML IV SCH (12:55)
[2023-11-24 12:58] LABS: Albumin, Blood 2.9 g/dL (3.4-5.0); Albumin/Globulin Ratio 0.7 (0.8-1.8); Bilirubin, Total 1.4 mg/dL (0.1-1.0); Bun/Creatinine Ratio 32.3 (12.0-20.0); Calcium, Blood 9.4 mg/dL (8.5-10.1); Creatinine, Blood 1.58 mg/dL (0.40-1.00); Globulin, Blood 3.9 g/dL (2.2-4.0); Potassium, Blood 5.6 mmol/L (3.5-5.5); Total Protein, Blood 6.8 g/dL (6.4-8.2)
[2023-11-24] MEDS ORDERED: Insulin Human Regular 100 UNIT in NS 100 ML IV SCH ×2 (13:20→14:10)
[2023-11-24] MEDS ORDERED: TraZODone HCl 50 MG Tab PO PRN (14:00)
[2023-11-24] MEDS ORDERED: FLU VACC QS2023-24(6MOS UP)/PF 60 MCG/0.5 ML SYRINGE IM SCH (14:00)
[2023-11-24] MEDS ORDERED: Bisacodyl 10 MG Supp PR PRN (14:00)
[2023-11-24] MEDS ORDERED: OxyCODONE HCL 5 MG TAB PO PRN (14:00)
[2023-11-24] MEDS ORDERED: Dextrose 50% 50 ML Syringe IV PRN (14:00)
[2023-11-24] MEDS ORDERED: Acetaminophen 650 MG Supp PR PRN (14:00)
[2023-11-24] MEDS ORDERED: Lactated Ringer's 1,000 ML IV SCH (14:05)
[2023-11-24] MEDS ORDERED: Naloxone HCl 0.4MG / ML 1ML Vial IV PRN (14:05)
[2023-11-24] MEDS ORDERED: Magnesium Hydroxide Conc 10 ML UDC PO PRN (14:05)
[2023-11-24] MEDS ORDERED: LYUMJEV KW100 UNIT/1 (16:30)
[2023-11-24] MEDS ORDERED: LYUMJEV100 UNIT/1 (16:32)
[2023-11-24] MEDS ORDERED: TRAZ50 PO (16:33)
[2023-11-24 16:56] LABS: Glucose, Blood 570 mg/dL (70-99)
[2023-11-24 17:56] LABS: Source, Urine Clean Catch
[2023-11-24 18:02] LABS: Appearance, Urine Clear (Clear); Bilirubin, Urine Neg (Neg); Blood, Urine Neg (Neg); Color, Urine Yellow (P-Yellow); Glucose Qualitative, Urine 4+ (Neg); Ketones, Urine 3+ (Neg); Leukocyte Esterase, Urine Neg (Neg); Nitrite, Urine Neg (Neg); Protein, Urine 1+ (Neg); Urobilinogen, Urine NORM (Normal)
--- NOTE | 2023-11-24 18:21 | NUR ---
SHIFT SUMMARY PATIENT ARRIVED TO ICU FROM ED VIA GURNEY AT 1550. STOOD TO TRANSFER SELF WITH SB ASSIST. INSULIN GTT @ 4 UNITS/HR, LR @ 150ML/HR. CBG >500 AT THIS TIME FOLLOWING DINNER. PATIENT ABLE TO STAND AND WALK TO TOILET WITH MINIMAL SB ASSIST. ADMISSION COMPLETE. NO FAMILY AT BEDSIDE. ALL BELONGINGS PLACED IN OPEN CUPBOARD IN ROOM. PATIENT TOLERATING PO CLEAR LIQUID DIET WELL. NO OTHER CHANGES THIS SHIFT.
[2023-11-24 18:35] LABS: Bun/Creatinine Ratio 36.7 (12.0-20.0); Calcium, Blood 8.4 mg/dL (8.5-10.1); Creatinine, Blood 1.39 mg/dL (0.40-1.00); Potassium, Blood 4.4 mmol/L (3.5-5.5)
[2023-11-24 19:22] LABS: Glucose, Blood 563 mg/dL (70-99)
[2023-11-24 20:01] LABS: Calcium, Blood 8.5 mg/dL (8.5-10.1); Creatinine, Blood 1.37 mg/dL (0.40-1.00); Potassium, Blood 4.7 mmol/L (3.5-5.5)
[2023-11-24] MEDS ORDERED: Lactobacil 2-S.Thermo-Bifido 1 1 Cap PO SCH (21:00)
[2023-11-24] MEDS ORDERED: Famotidine 20 MG Tab PO SCH (21:00)
--- NOTE | 2023-11-24 21:22 | NUR ---
ASSUMED CARE CARE WAS ASSUMED OF PT AT 1900, REPORT GIVEN BY NELSON RIGGINS. PT A/O X4, ABLE TO ANSWER QUESTIONS APPROPRIATELY AND PARTICIPATE IN CONVERSATION. PT [place], HAS HEARING AIDS IN. INSULIN GTT INFUSING, SEE FLOWSHEET. LR INFUSING @ 150. PT ON RA, O2 SATS > 95% WHEN SPOT CHECKED. CARDIAC MONITORING REFLECTS NSR, HR 70s, SBP 110s. PT DENIES PAIN AT THIS TIME. PT TOLERATING CLEAR LIQUIDS AT THIS TIME.
[2023-11-24 22:57] LABS: Bun/Creatinine Ratio 39.5 (12.0-20.0); Calcium, Blood 8.3 mg/dL (8.5-10.1); Creatinine, Blood 1.24 mg/dL (0.40-1.00); Potassium, Blood 4.3 mmol/L (3.5-5.5)
[2023-11-25] VITALS (16 sets, daily range): BP systolic 86–145; BP diastolic 44–91
[2023-11-25] MEDS ORDERED: D5W-1/2NS 1,000 ML IV SCH ×2 (00:30→01:00)
[2023-11-25 03:29] LABS: Base Excess Venous -0.1 mmol/L; Bicarbonate Venous 24.4 mmol/L (24.0-30.0); PCO2 Venous 34.3 mmHg (38-42); pH Blood Venous 7.45 (7.34-7.37)
[2023-11-25 03:47] LABS: BASOPHILS ABSOLUTE AUTO 0.03 K/mm3 (0.00-0.23); BASOPHILS PERCENT AUTO 0 % (0-2); EOSINOPHILS ABSOLUTE AUTO 0.04 K/mm3 (0.00-0.68); EOSINOPHILS PERCENT AUTO 0 % (0-6); Hematocrit 21.7 % (33.0-51.0); Hemoglobin 7.4 g/dL (11.5-16.0); IMMATURE GRAN PERCENT AUTO 1 % (0-1); LYMPHOCYTES ABSOLUTE AUTO 1.48 K/mm3 (0.84-5.20); LYMPHOCYTES PERCENT AUTO 9 % (21-46); MONOCYTES ABSOLUTE AUTO 1.15 K/mm3 (0.16-1.47); MONOCYTES PERCENT AUTO 7 % (4-13); Mean Corpuscular HGB Conc 34.1 g/dL (31.5-36.5); NEUTROPHILS ABSOLUTE AUTO 14.29 K/mm3 (1.96-9.15); NEUTROPHILS PERCENT AUTO 83 % (41-73); RDW Coefficient Variation 13.2 % (11.7-14.2); RDW Standard Deviation 45.3 fL (35.1-46.3); Red Blood Cell Count 2.24 M/mm3 (3.80-5.20); White Blood Cell Count 17.19 K/mm3 (4.00-11.30)
[2023-11-25 03:55] LABS: Mean Corpuscular Volume 97 fL (80-100); Mean Platelet Volume 10.8 fL (9.1-12.4)
[2023-11-25 04:01] LABS: Bun/Creatinine Ratio 40.2 (12.0-20.0); Calcium, Blood 7.9 mg/dL (8.5-10.1); Creatinine, Blood 1.17 mg/dL (0.40-1.00); Magnesium, Blood 1.8 mg/dL (1.6-2.4); Phosphorus, Blood 2.9 mg/dL (2.5-4.9); Potassium, Blood 3.8 mmol/L (3.5-5.5)
[2023-11-25 04:20] LABS: Platelet Count 128 K/mm3 (150-400)
--- NOTE | 2023-11-25 05:43 | NUR ---
SHIFT SUMMARY PT REMAINS A/O X4, PARTICIPATES IN CONVERSATION APPROPRIATELY. 1 ASSIST TO BATHROOM. INSULIN GTT INFUSING, SEE FLOWSHEET. D5 1/2 NS INFUSING @ 150. HOSPITALIST NOTIFIED OF CORRECTED LABS, SEE EMAR FOR NEW ORDERS. PT REMAINS ON RA, O2 SATS > 95% WHEN SPOT CHECKED. CARDIAC MONITORING REFLECTS NSR, BP SOFT WHILE SLEEPING. HR 60s AT THIS TIME. PT AFEBRILE THIS SHIFT. PT TOLERATING LIQUIDS AT THIS TIME, PT STATED SHE WANTED TO SLEEP WHEN ASKED IF SHE WANTED TO TRY FOOD.
[2023-11-25] MEDS ORDERED: Insulin Human Lispro 100 Units/ML 3ML Syringe SC SCH ×4 (07:30→21:00)
[2023-11-25] MEDS ORDERED: Aspirin 81 MG Chew PO SCH (09:00)
[2023-11-25] MEDS ORDERED: Multivitamins/Minerals TAB PO SCH (09:00)
[2023-11-25] MEDS ORDERED: Heparin Sodium 5000 Units/ML 1ML MDV SC SCH (09:00)
[2023-11-25] MEDS ORDERED: Cholecalciferol 400 unit Tab PO SCH ×2 (09:00)
[2023-11-25] MEDS ORDERED: Insulin Glargine-Yfgn 100 Unit/mL 3 ML SYR SC SCH (09:00)
[2023-11-25] MEDS ORDERED: Metoprolol Succinate 25 MG TABCR PO SCH (09:00)
[2023-11-25] MEDS ORDERED: Calcium Carbonate 1,250 MG TABLET PO SCH (09:00)
[2023-11-25] MEDS ORDERED: Enoxaparin 30 MG/0.3 ML SYR SC SCH (09:00)
--- NOTE | 2023-11-25 09:18 | NUR ---
Assumed care of pt at 0700 with Ciara DASILVA. Pt A&O x 4. [place]. Provided with hearing aids. Answers questions, follows commands, verbalizes needs. Pleasant and cooperative with care. SpO2 100% RA. SR per monitor. Inuslin at 1 unit per hour and D5 1/[address] Diaz in to see patient, states that pt may be med no tele once insulin drip is off.
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
--- NOTE | 2023-11-25 12:17 | NUR ---
Pt's insulin pump supplies at bedside. Inquired what pt's home settings are and she was not clear. Pt states that she knows how to program and and adjust settings. Call placed to pediatric neurologist's office to inquire what pt's home orders are. They stated they will have pt's pediatric neurologist doctor or nurse call the unit with pt's specific orders. Call placed to Dr Diaz to update. Also notified that lunch CBG is 317. Provider changed humalog sliding scale from low to medium.
--- NOTE | 2023-11-25 17:27 | NUR ---
Discussed pt's insulin regimen with Dr Siddiqui. He stated that if patient does not know her insulin orders, that patient should discharge on insulin pens and the pump will be restarted during her appiontment on Dec 01 at 10:15 am. He also gave the following recommadations for pt's insulin regimen on discharge: - 13 units Toujeo every morning - Use white insulin calculation wheel for mealtime coverage of Lyumjev insulin. If patient is not able to use her white insulin wheel, use 1 unit of Lyumjev for 8 grams of carbs. These recommendations were notified to Dr Diaz. Provider states plan will be for pt to discharge home tomorrow using these recommendations. Call placed to Pt's daughter Mary ([phone]) who states she will be available tomorrow afternoon to pick patient up and will make sure pt has ample supply of insulin pens prior to pt discharging home.
--- NOTE | 2023-11-25 18:38 | NUR ---
SUMMARY Pt is medical floor status without telemetry. A&O x 4. Answers questions, follows commnands, verbalizes needs. Pleasant and cooperative with care. SpO2 90% or greater room air. Good appetite. Denies N/V. Transfers with supervision. Continue monitoring until care handoff.
--- NOTE | 2023-11-25 20:00 | NUR ---
ASSUMPTION OF CARE: RECEIVED REPORT FROM EFRAIN RIGGINS. PT ALERT AND ORIENTED. ABLE TO APPROPRIATELY ANSWER QUESTIONS AND MAKE NEEDS KNOWN. PLEASANT AND COOPERATIVE. PT ON RA WITH SPO2 >95%. DENIES SOB. LUNG SOUNDS CLEAR. MEDICAL STATUS WITH NO TELE. PT ABLE TO AMBULATE TO BATHROOM WITH MINIMAL ASSIST/IND. PIV TO RFA PATENT AND SALINE LOCKED. TOLERATING PO INTAKE WELL. CALL PLACED TO HOSPITALIST REGARDING HS BLOOD SUGAR, ORDERS GIVEN TO UPDATE SCALE FOR AC/HS COVERAGE. HS INSULIN GIVEN PER ORDER. TRANSFER TO MEDICAL FLOOR ROOM 328 AT 2049. REPORT GIVEN TO JOSHUA RIGGINS. ALL BELONGINGS SENT WITH THE PT. PT TAKEN BY WHEELCHAIR. TOLERATED WELL. UPDATE GIVEN TO TO ROOM NUMBER AND PT CONDITION.
--- NOTE | 2023-11-25 22:07 | NUR ---
NURSE NOTE ASSUMED CARE FROM ICU1 RODRIGO RN. PATIENT ALERT AND ORIENTED. PATIENT IS IND IN ROOM. BELONGINGS WITH PATIENT. MEDICATIONS IN DRAWER. PATIENT ORIENTED TO ROOM AND MEDICAL FLOOR. WILL CONTINUE CARE.
--- NOTE | 2023-11-26 04:37 | NUR ---
SHIFT SUMMARY PATIENT IS ALERT AND ORIENTED. PATIENT HAS HAD NO ACUTE EVENTS THIS SHIFT. VITAL SIGNS REVIEWED. PATIENT IS A RECENT TRANSFER FROM ICU1. PATIENT HAS BEEN IND IN ROOM. PATIENT HAS HAD NO COMPLAINTS OF SOB, NAUSEA, VOMITTING OR PAIN THIS SHIFT. PATIENT IS PLANNING ON DISCHARGING TO HOME TODAY. BED IN LOCKED AND LOWEST POSITION. CALL LIGHT IN PLACE. WILL MONITOR UNTIL SHIFT CHANGE.
[2023-11-26 04:43] VITALS: BP 174/88
[2023-11-26 04:47] VITALS: BP 158/80
[2023-11-26 05:33] LABS: BASOPHILS ABSOLUTE AUTO 0.02 K/mm3 (0.00-0.23); BASOPHILS PERCENT AUTO 0 % (0-2); EOSINOPHILS ABSOLUTE AUTO 0.07 K/mm3 (0.00-0.68); EOSINOPHILS PERCENT AUTO 1 % (0-6); Hematocrit 29.2 % (33.0-51.0); Hemoglobin 9.6 g/dL (11.5-16.0); IMMATURE GRAN ABSOLUTE AUTO 0.02 K/mm3 (0.00-0.10); IMMATURE GRAN PERCENT AUTO 0 % (0-1); LYMPHOCYTES ABSOLUTE AUTO 1.31 K/mm3 (0.84-5.20); LYMPHOCYTES PERCENT AUTO 20 % (21-46); MONOCYTES ABSOLUTE AUTO 0.54 K/mm3 (0.16-1.47); MONOCYTES PERCENT AUTO 8 % (4-13); Mean Corpuscular HGB 31.9 pg (26.0-34.0); Mean Corpuscular HGB Conc 32.9 g/dL (31.5-36.5); Mean Corpuscular Volume 97 fL (80-100); Mean Platelet Volume 11.2 fL (9.1-12.4); NEUTROPHILS ABSOLUTE AUTO 4.55 K/mm3 (1.96-9.15); NEUTROPHILS PERCENT AUTO 70 % (41-73); Platelet Count 112 K/mm3 (150-400); RDW Coefficient Variation 13.1 % (11.7-14.2); RDW Standard Deviation 46.8 fL (35.1-46.3); Red Blood Cell Count 3.01 M/mm3 (3.80-5.20); White Blood Cell Count 6.51 K/mm3 (4.00-11.30)
[2023-11-26 06:36] LABS: Bun/Creatinine Ratio 36.6 (12.0-20.0); Calcium, Blood 8.8 mg/dL (8.5-10.1); Creatinine, Blood 0.71 mg/dL (0.40-1.00); Potassium, Blood 4.1 mmol/L (3.5-5.5)
[2023-11-26 07:14] VITALS: BP 184/77
[2023-11-26] MEDS ORDERED: OMEP20ER PO (13:28)
[2023-11-26] MEDS ORDERED: LISI5 PO (13:31)
--- NOTE | 2023-11-26 14:00 | NUR ---
DISCHARGE INSTRUCTIONS COMPLETED AND DISCUSSED WITH PT EXPRESSING UNDERSTANDING. SCRIPTS FAXED TO [facility] ON [place]. TO [facility] VIA W/C WITH .
== END 2023-11-26 14:10 | disposition home or self-care (01) | DRG 919 ==
LOC: ER 11:44 → MEDS 13:53 → ICUE 13:53 → MEDS 11-25 20:41 → ENPENDDIS 11-26 11:45 → MEDS 11-26 14:10
PROVIDERS: Student in an Organized Health Care Education/Training Program; ADMIT Hospitalist
DX: T85.694A Other mechanical complication of insulin pump, initial encounter (principal); E10.10 Type 1 diabetes mellitus with ketoacidosis without coma; E87.1 Hypo-osmolality and hyponatremia; E86.0 Dehydration; E87.5 Hyperkalemia; I10 Essential (primary) hypertension; I25.10 Atherosclerotic heart disease of native coronary artery without angina pectoris; C88.0 Waldenstrom macroglobulinemia; K21.9 Gastro-esophageal reflux disease without esophagitis; H40.9 Unspecified glaucoma; Z95.1 Presence of aortocoronary bypass graft; Z90.5 Acquired absence of kidney; Z85.528 Personal history of other malignant neoplasm of kidney; Z79.82 Long term (current) use of aspirin; Q63.1 Lobulated, fused and horseshoe kidney; Z11.52 Encounter for screening for COVID-19
CPT/HCPCS: 0241U; 36415; 80048; 80053; 82010; 82803; 82947; 83036; 83605; 83735; 84100; 85025; 93005; 93010; 94760; 96361; 96374; 99285-25; A9270; J1644; J1815; J2405; J7030; J7042; J7120

== ENCOUNTER 2024-05-25 15:56 | Emergency (ER) | payer MEDICARE ==
[~2024-05-25] VITALS: Ht 139.7 cm; Wt 36.3 kg
[~2024-05-25 15:56] MED LIST changes: +LISI5 PO; +LYUMJEV KW100 UNIT/1; +LYUMJEV100 UNIT/1; +OMEP20ER PO; +TRAZ50 PO
[2024-05-25 16:24] VITALS: BP 160/86
[2024-05-25] MEDS ORDERED: BACTRIM DS TAB1 EAC1 PO (18:00)
[2024-05-25] MEDS ORDERED: Cephalexin Monohydrate 500 MG Cap PO ONE (18:00)
[2024-05-25] MEDS ORDERED: Trimethoprim/Sulfamethoxazole DS Tab PO ONE (18:00)
[2024-05-25] MEDS ORDERED: CEPH500 PO (18:00)
== END 2024-05-25 18:20 | disposition home or self-care (01) ==
LOC: ER 15:56
DX: S60.221A Contusion of right hand, initial encounter (principal); X58.XXXA Exposure to other specified factors, initial encounter; L03.113 Cellulitis of right upper limb; E10.9 Type 1 diabetes mellitus without complications; I25.10 Atherosclerotic heart disease of native coronary artery without angina pectoris; I10 Essential (primary) hypertension; K21.9 Gastro-esophageal reflux disease without esophagitis; Z88.8 Allergy status to other drugs, medicaments and biological substances; Z79.82 Long term (current) use of aspirin; Z79.4 Long term (current) use of insulin; Z79.899 Other long term (current) drug therapy; Z95.1 Presence of aortocoronary bypass graft
CPT/HCPCS: 76882; 99283-25; A9270

== ENCOUNTER 2024-11-09 13:42 | Inpatient (IN) | payer OTHER ==
[~2024-11-09] VITALS: Ht 139.7 cm; Wt 43.5 kg
[2024-11-09] VITALS (7 sets, daily range): BP systolic 113–136; BP diastolic 61–71
[~2024-11-09 13:42] MED LIST changes: +BACTRIM DS TAB1 EAC1 PO; +CEPH500 PO
[2024-11-09 17:56] LABS: BASOPHILS ABSOLUTE AUTO 0.09 K/mm3 (0.00-0.23); BASOPHILS PERCENT AUTO 0 % (0-2); EOSINOPHILS ABSOLUTE AUTO 0.01 K/mm3 (0.00-0.68); EOSINOPHILS PERCENT AUTO 0 % (0-6); Hematocrit 34.6 % (33.0-51.0); Hemoglobin 10.9 g/dL (11.5-16.0); IMMATURE GRAN ABSOLUTE AUTO 0.27 K/mm3 (0.00-0.10); IMMATURE GRAN PERCENT AUTO 1 % (0-1); LYMPHOCYTES ABSOLUTE AUTO 1.05 K/mm3 (0.84-5.20); LYMPHOCYTES PERCENT AUTO 5 % (21-46); MONOCYTES ABSOLUTE AUTO 1.13 K/mm3 (0.16-1.47); MONOCYTES PERCENT AUTO 5 % (4-13); Mean Corpuscular HGB 31.7 pg (26.0-34.0); Mean Corpuscular HGB Conc 31.5 g/dL (31.5-36.5); Mean Corpuscular Volume 101 fL (80-100); Mean Platelet Volume 11.8 fL (9.1-12.4); NEUTROPHILS ABSOLUTE AUTO 20.53 K/mm3 (1.96-9.15); NEUTROPHILS PERCENT AUTO 89 % (41-73); Platelet Count 249 K/mm3 (150-400); RDW Coefficient Variation 12.9 % (11.7-14.2); RDW Standard Deviation 47.2 fL (35.1-46.3); Red Blood Cell Count 3.44 M/mm3 (3.80-5.20); White Blood Cell Count 23.08 K/mm3 (4.00-11.30)
[2024-11-09] MEDS ORDERED: NS 1,000 ML IV SCH ×2 (18:30→19:35)
[2024-11-09] MEDS ORDERED: Ondansetron HCl 2 MG / ML 2ML Vial IV ONE (18:30)
[2024-11-09 18:44] LABS: Albumin, Blood 3.1 g/dL (3.4-5.0); Albumin/Globulin Ratio 0.8 (0.8-1.8); Bilirubin, Total 1.3 mg/dL (0.1-1.0); Bun/Creatinine Ratio 37.3 (12.0-20.0); Calcium, Blood 9.6 mg/dL (8.5-10.1); Creatinine, Blood 0.99 mg/dL (0.40-1.00); Globulin, Blood 3.9 g/dL (2.2-4.0); Potassium, Blood 5.1 mmol/L (3.5-5.5)
[2024-11-09 18:55] LABS: Base Excess Venous -16.7 mmol/L; Bicarbonate Venous 12.3 mmol/L (24.0-30.0); pH Blood Venous 7.13 (7.34-7.37)
[2024-11-09 18:57] LABS: PCO2 Venous 38.2 mmHg (38-42)
[2024-11-09 19:29] LABS: Beta-hydroxybutyrate 52.6 mg/dL (0.2-2.8)
[2024-11-09] MEDS ORDERED: Insulin Human Regular 100 UNIT in NS 100 ML IV SCH ×2 (19:35→20:55)
[2024-11-09] MEDS ORDERED: Ondansetron HCl 2 MG / ML 2ML Vial IV PRN (20:40)
[2024-11-09] MEDS ORDERED: Lactated Ringer's 1,000 ML IV SCH (20:45)
[2024-11-09] MEDS ORDERED: Lactated Ringer's 1,000 ML IV ONE (20:55)
[2024-11-09] MEDS ORDERED: Dextrose 50% 50 ML Vial IV PRN (20:55)
[2024-11-09] MEDS ORDERED: OMEP20ER PO (22:15)
[2024-11-09 22:49] LABS: Calcium, Blood 8.3 mg/dL (8.5-10.1); Creatinine, Blood 1.14 mg/dL (0.40-1.00); Potassium, Blood 4.7 mmol/L (3.5-5.5)
[2024-11-09] MEDS ORDERED: NS 250 ML IV PRN (23:20)
[2024-11-09 23:56] LABS: Glucose, Blood 579 mg/dL (70-99)
[2024-11-10] VITALS (21 sets, daily range): BP systolic 104–140; BP diastolic 53–97
[2024-11-10] MEDS ORDERED: TraMADol HCl 50 MG Tab PO PRN (00:50)
[2024-11-10] MEDS ORDERED: Acetaminophen 325 MG TABLET PO PRN (00:50)
[2024-11-10 02:08] LABS: Source, Urine Clean Catch
[2024-11-10 02:15] LABS: Bilirubin, Urine Neg (Neg); Blood, Urine Neg (Neg); Glucose Qualitative, Urine 4+ (Neg); Ketones, Urine 2+ (Neg); Leukocyte Esterase, Urine Neg (Neg); Nitrite, Urine Neg (Neg); Protein, Urine 1+ (Neg); Urobilinogen, Urine NORM (Normal)
[2024-11-10 02:32] LABS: Appearance, Urine Clear (Clear); Color, Urine Yellow (P-Yellow)
[2024-11-10 02:50] LABS: Bun/Creatinine Ratio 38.3 (12.0-20.0); Calcium, Blood 8.3 mg/dL (8.5-10.1); Creatinine, Blood 0.99 mg/dL (0.40-1.00); Potassium, Blood 3.9 mmol/L (3.5-5.5)
[2024-11-10 02:50] LABS: BASOPHILS ABSOLUTE AUTO 0.03 K/mm3 (0.00-0.23); BASOPHILS PERCENT AUTO 0 % (0-2); EOSINOPHILS PERCENT AUTO 0 % (0-6); Hematocrit 25.3 % (33.0-51.0); Hemoglobin 8.4 g/dL (11.5-16.0); IMMATURE GRAN ABSOLUTE AUTO 0.16 K/mm3 (0.00-0.10); IMMATURE GRAN PERCENT AUTO 1 % (0-1); LYMPHOCYTES ABSOLUTE AUTO 0.91 K/mm3 (0.84-5.20); LYMPHOCYTES PERCENT AUTO 5 % (21-46); MONOCYTES ABSOLUTE AUTO 1.07 K/mm3 (0.16-1.47); MONOCYTES PERCENT AUTO 6 % (4-13); Mean Corpuscular HGB 31.9 pg (26.0-34.0); Mean Corpuscular HGB Conc 33.2 g/dL (31.5-36.5); Mean Platelet Volume 11.2 fL (9.1-12.4); NEUTROPHILS ABSOLUTE AUTO 15.64 K/mm3 (1.96-9.15); NEUTROPHILS PERCENT AUTO 88 % (41-73); Platelet Count 125 K/mm3 (150-400); RDW Coefficient Variation 12.9 % (11.7-14.2); RDW Standard Deviation 45.3 fL (35.1-46.3); Red Blood Cell Count 2.63 M/mm3 (3.80-5.20); White Blood Cell Count 17.81 K/mm3 (4.00-11.30)
[2024-11-10 02:52] LABS: Mean Corpuscular Volume 96 fL (80-100)
[2024-11-10] MEDS ORDERED: Potassium Chloride 20 MEQ TabCR PO ONE (03:05)
[2024-11-10] MEDS ORDERED: D5W-1/2NS 1,000 ML IV SCH (03:45)
--- NOTE | 2024-11-10 05:35 | NUR ---
SHIFT SUMMARY PT CAME TO ICU 6 AROUND 2144 FOR DKA. SHE IS A/OX4, RESPONDS APPROPRIATLY AND MAKES NEEDS KNOWN. MOOD HAS BEEN PLEASANT THIS SHIFT. NSR ON MONITOR, HR 70-80'S, BP STABLE. ON ROOM AIR, SATS > 94%, DENIES SOB. SHE IS ABLE TO GET UP TO TOILET WITH SBA. SMALL BM THIS SHIFT. TOLERATING ICE CHIPS AND SIPS OF WATER, NO SWALLOW ISSUES NOTED. NO N/V THIS SHIFT. POWERGLIDE PLACED IN ARCENIO. INSULIN INFUSING AT 3 U. D51/2NS INFUSING AT 150 ML/H. PT HAS 2 22G PIVS IN BILAT HANDS. PT WAS GIVEN 1 BOLUS NS IN ED AND 1 BOLUS LR UPON ARRIVAL TO ICU. GOOD UOP NOTED. PO K+ REPLACEMENT GIVEN. PRN TYLENOL ON DEC FOR CHRONIC BACK/NECK PAIN. CALL LIGHT IN REACH.
[2024-11-10] MEDS ORDERED: Omeprazole 20 MG CapCR PO SCH (06:00)
[2024-11-10 06:50] LABS: Bun/Creatinine Ratio 34.3 (12.0-20.0); Creatinine, Blood 1.08 mg/dL (0.40-1.00); Potassium, Blood 4.6 mmol/L (3.5-5.5)
[2024-11-10] MEDS ORDERED: Enoxaparin 40 MG/0.4 ML SYR SC SCH (09:00)
[2024-11-10] MEDS ORDERED: Aspirin 81 MG Chew PO SCH (09:00)
[2024-11-10] MEDS ORDERED: Insulin NPH 100 Unit / ML 10ML Vial SC ONE (09:00)
[2024-11-10] MEDS ORDERED: Insulin Glargine-Yfgn 100 Unit/mL 3 ML SYR SC ONE (10:00)
--- NOTE | 2024-11-10 10:12 | NUR ---
THIS RN ASSUMED CARE OF PT AT 0700. PT IS ALERT AND ORIENTED X4, PT BLOOD SUGAR THIS AM WAS 196 AND HAS SLOWLY GONE DOWN TO [address] BENITO CAME BY AND AGREED TO START PT ON SQ INSULIN, LET PT EAT AND THEN AFTER AN HOUR AND A HALF D/C THE INSULIN DRIP. PT HEART RATE IS IN SA, BLOOD PRESSURE STABLE AT 145/62, PT DENIES CHEST PAIN. PT IS ON ROOM AIR SATTING >92% AND PT DENIES SHORTNESS OF BREATHE. PT SAID THEY JUST NEED TO GET HOME INSULIN PUMP WORKING, TO BRING IN NEW DEXECOM. NO OTHER INTERVENTIONS AT THIS TIME. PLAN OF CARE CONTINUED.
[2024-11-10 10:43] LABS: Bun/Creatinine Ratio 36.7 (12.0-20.0); Calcium, Blood 7.4 mg/dL (8.5-10.1); Creatinine, Blood 0.93 mg/dL (0.40-1.00)
[2024-11-10] MEDS ORDERED: Insulin Human Lispro 100 Units/ML 3ML Syringe SC SCH ×2 (11:30→18:00)
--- NOTE | 2024-11-10 14:53 | NUR ---
Pt. is awake and welcomes my visit. Spouse is at bedside. Pt. is pleasant. Facilitated a life review and considered matters of mani, belief and the community. Listened with empahty and responded with pastoral care. Pt. displayed evidence of engagement and awareness. Prayed with Pt. Pt. verbalized gratitude for the spiritual care visit.
[2024-11-10] MEDS ORDERED: Insulin Pump Cartridge MISC SC SCH (17:00)
--- NOTE | 2024-11-10 17:25 | NUR ---
PT SUMMARY PT IS STILL ALERT AND ORIENTED X4. PT IS STILL HAVING TROUBLE GETTING INSULIN PUMP TO WORK, PT ENDOCRONOLOGIST CALLED AND IS GOING TO PUT IN ORDERS. CHANGED PT TO PCU STATUS, AND SAID TO USE THE PT HOME INSULIN BUT IT IS NOT WORKING AT THE MOMENT.
--- NOTE | 2024-11-10 21:00 | NUR ---
ASSUMPTION OF CARE CARE OF THIS PT ASSUMED AT 1900 FOLLOWING BEDSIDE REPORT FROM DAY RN. PT ALERT AND ORIENTED IN NO APPARENT DISTRESS TALKING WITH TWO CHILDREN IN ROOM. NO CHEST PAIN, SOB, AB PAIN, N/V, DIARRHEA, WEAKNESS, FATIGUE, CHILLS, MUSCLE ACHES. NSR IN 60S WITH STABLE BP. 97% O2 ON RA. BOWEL SOUNDS ACTIVE. SALINE LOCKED. PT SAYS SHE TAKES TRAZODONE FOR SLEEP. WHILE LOOKING UP DOSAGE, MEDICATIONS WERE RECONCILED AND METOPROLOL 12.5 QD WAS ADDED TO MAR. PT HAS CALL LIGHT HANDY.
[2024-11-10] MEDS ORDERED: Metoprolol Succinate 25 MG TABCR PO SCH (21:40)
[2024-11-10] MEDS ORDERED: TraZODone HCl 50 MG Tab PO SCH (21:45)
[2024-11-11] VITALS: BP 99/51
[2024-11-11 02:00] VITALS: BP 92/55
[2024-11-11 04:00] VITALS: BP 137/69
--- NOTE | 2024-11-11 05:31 | NUR ---
UPDATE: LOW GLUCOSE PT DEXCOM ALARMED WITH 77 AT 0400. I PLANNED TO WAIT FOR THE LAB DRAW TO VERIFY. LAB CAME BUT COULD NOT GET ENOUGH BLOOD; I DID NOT KNOW LAB CAME. AT 0500 THE DEXCOM ALARMED FOR 60. I CHECKED HER POC GLUCOSE WHICH WAS 56. PT GIVEN 4 OZ APPLE JUICE AND ONE STRING CHEESE. WILL RECHECK GLUCOSE SOON. PT ASYMPTOMATIC THE WHOLE TIME. SHE STATES THAT THIS HAPPENS A COUPLE TIMES A WEEK.
[2024-11-11 06:39] LABS: BASOPHILS ABSOLUTE AUTO 0.02 K/mm3 (0.00-0.23); BASOPHILS PERCENT AUTO 0 % (0-2); EOSINOPHILS ABSOLUTE AUTO 0.05 K/mm3 (0.00-0.68); EOSINOPHILS PERCENT AUTO 1 % (0-6); Hematocrit 28.8 % (33.0-51.0); Hemoglobin 9.3 g/dL (11.5-16.0); IMMATURE GRAN ABSOLUTE AUTO 0.04 K/mm3 (0.00-0.10); IMMATURE GRAN PERCENT AUTO 1 % (0-1); LYMPHOCYTES ABSOLUTE AUTO 1.19 K/mm3 (0.84-5.20); LYMPHOCYTES PERCENT AUTO 14 % (21-46); MONOCYTES ABSOLUTE AUTO 0.53 K/mm3 (0.16-1.47); MONOCYTES PERCENT AUTO 6 % (4-13); Mean Corpuscular HGB 31.6 pg (26.0-34.0); Mean Corpuscular HGB Conc 32.3 g/dL (31.5-36.5); Mean Corpuscular Volume 98 fL (80-100); Mean Platelet Volume 11.4 fL (9.1-12.4); NEUTROPHILS ABSOLUTE AUTO 6.45 K/mm3 (1.96-9.15); NEUTROPHILS PERCENT AUTO 78 % (41-73); Platelet Count 99 K/mm3 (150-400); RDW Coefficient Variation 13.2 % (11.7-14.2); RDW Standard Deviation 47.3 fL (35.1-46.3); Red Blood Cell Count 2.94 M/mm3 (3.80-5.20); White Blood Cell Count 8.28 K/mm3 (4.00-11.30)
[2024-11-11 06:56] LABS: Bun/Creatinine Ratio 25.3 (12.0-20.0); Calcium, Blood 8.6 mg/dL (8.5-10.1); Creatinine, Blood 0.91 mg/dL (0.40-1.00); Potassium, Blood 4.4 mmol/L (3.5-5.5)
[2024-11-11 07:00] VITALS: BP 122/59
--- NOTE | 2024-11-11 07:10 | NUR ---
PT LYING IN BED SLEEPING. AWAKES TO VOICE AND IS ALERT AND ORIENTED. HR SINUS RHYTHM WITH STABLE BP. O2 SAT 96% ON RA. NO CHEST PAIN, SOB, AB PAIN, N/V. UP TO TOILET WITH SBA ALL NIGHT. PT HAD ONE ASYMPTOMATIC EPISODE OF LOW BLOOD SUGAR- SEE NOTE. PT LEFT WITH CALL LIGHT NEARBY AND REPORT GIVEN TO ONCOMING RN.
--- NOTE | 2024-11-11 07:46 | NUR ---
THIS RN ASSUMED CARE OF PT AT 0700. PT IS ALERT AND ORIENTED X4, PT HAD AN EPISODE OF LOW BLOOD SUGAR LAST NIGHT, MOST RECENT BLOOD SUGAR IS 149, PT WAS ASYMPTOMATIC. PT HEART RATE IS IN THE 60-70s, BLOOD PRESSURE STABLE AT 122/59, PT DENIES CHEST PAIN. PT IS ON ROOM AIR SATTING >95%, PT DENIES SHORTNESS OF BREATHE AND SOUNDS CLEAR. PLAN TODAY IS TO HOPEFULLY GET PT TO SEE SPECIALIST ABOUT THEIR OWN INSULIN PUMP. NO OTHER INTERVENTIONS AT THIS TIME. PLAN OF CARE CONTINUED.
[2024-11-11 08:00] VITALS: BP 154/70
[2024-11-11 09:00] VITALS: BP 132/58
--- NOTE | 2024-11-11 09:49 | NUR ---
PT IS GOING TO BE DISCHARGED HOME TODAY. PT HOME INSULIN PUMP IS STILL NOT WORKING PROPERLY, THIS RN TALKED TO AND IS AWARE AND PT HAS AN APPOINTMENT TODAY AT 1420 WITH ENDOCRONOLOGIST , THIS RN CALLED AND CONFIRMED APPOINTMENT WITH . NO OTHER INTERVENTIONS AT THIS TIME.
[2024-11-11] MEDS ORDERED: ASPI81CH PO (10:08)
== END 2024-11-11 10:28 | disposition home or self-care (01) | DRG 638 ==
LOC: ER 13:42 → ICUE 20:21 → ERHOLD 20:21 → ICUE 22:00
PROVIDERS: Family Medicine; Nurse Practitioner Acute Care; Student in an Organized Health Care Education/Training Program; ADMIT Student in an Organized Health Care Education/Training Program
DX: E10.10 Type 1 diabetes mellitus with ketoacidosis without coma (principal); R65.10 Systemic inflammatory response syndrome (SIRS) of non-infectious origin without acute organ dysfunction; I25.10 Atherosclerotic heart disease of native coronary artery without angina pectoris; K21.9 Gastro-esophageal reflux disease without esophagitis; I10 Essential (primary) hypertension; E86.0 Dehydration; M81.0 Age-related osteoporosis without current pathological fracture; H40.9 Unspecified glaucoma; C88.00 Waldenstrom macroglobulinemia not having achieved remission; Z88.8 Allergy status to other drugs, medicaments and biological substances; Z79.82 Long term (current) use of aspirin; Z79.4 Long term (current) use of insulin; Z79.899 Other long term (current) drug therapy; Z85.53 Personal history of malignant neoplasm of renal pelvis; Z95.1 Presence of aortocoronary bypass graft; Z98.49 Cataract extraction status, unspecified eye; Z90.5 Acquired absence of kidney; Z98.890 Other specified postprocedural states
CPT/HCPCS: 36415; 71045; 80048; 80053; 82010; 82784; 82803; 82947; 83521; 84155; 84165; 85025; 86334; 96361; 96374; 99285-25; A9270; C1751; J1650; J1815; J2405; J7030; J7042; J7120

== ENCOUNTER 2025-01-15 16:08 | Inpatient (IN) | payer OTHER ==
[~2025-01-15] VITALS: Ht 149.9 cm; Wt 41.1 kg
[2025-01-15] MEDS ORDERED: NS 1,000 ML IV SCH ×2 (16:30→19:00)
[2025-01-15] MEDS ORDERED: Ondansetron HCl 2 MG / ML 2ML Vial IV ONE (16:30)
[2025-01-15] MEDS ORDERED: Ketorolac Tromethamine 30mg Vial IM ONE (16:45)
[2025-01-15 17:03] LABS: Bicarbonate Venous 16.7 mmol/L (24.0-30.0); PCO2 Venous 28.9 mmHg (38-42); pH Blood Venous 7.33 (7.34-7.37)
[2025-01-15 17:12] LABS: BASOPHILS ABSOLUTE AUTO 0.04 K/mm3 (0.00-0.23); BASOPHILS PERCENT AUTO 0 % (0-2); EOSINOPHILS PERCENT AUTO 0 % (0-6); Hematocrit 33.3 % (33.0-51.0); Hemoglobin 10.6 g/dL (11.5-16.0); IMMATURE GRAN ABSOLUTE AUTO 0.18 K/mm3 (0.00-0.10); IMMATURE GRAN PERCENT AUTO 1 % (0-1); LYMPHOCYTES ABSOLUTE AUTO 0.94 K/mm3 (0.84-5.20); LYMPHOCYTES PERCENT AUTO 7 % (21-46); MONOCYTES ABSOLUTE AUTO 0.75 K/mm3 (0.16-1.47); MONOCYTES PERCENT AUTO 5 % (4-13); Mean Corpuscular HGB 32.3 pg (26.0-34.0); Mean Corpuscular HGB Conc 31.8 g/dL (31.5-36.5); Mean Corpuscular Volume 102 fL (80-100); Mean Platelet Volume 11.8 fL (9.1-12.4); NEUTROPHILS PERCENT AUTO 87 % (41-73); Platelet Count 169 K/mm3 (150-400); RDW Coefficient Variation 12.5 % (11.7-14.2); RDW Standard Deviation 46.8 fL (35.1-46.3); Red Blood Cell Count 3.28 M/mm3 (3.80-5.20); White Blood Cell Count 14.31 K/mm3 (4.00-11.30)
[2025-01-15] MEDS ORDERED: Lactated Ringer's 1,000 ML IV SCH (17:30)
[2025-01-15 17:43] LABS: Albumin, Blood 3.3 g/dL (3.4-5.0); Albumin/Globulin Ratio 0.9 (0.8-1.8); Bun/Creatinine Ratio 31.9 (12.0-20.0); Calcium, Blood 9.7 mg/dL (8.5-10.1); Creatinine, Blood 1.16 mg/dL (0.40-1.00); Globulin, Blood 3.8 g/dL (2.2-4.0); Potassium, Blood 5.3 mmol/L (3.5-5.5); Total Protein, Blood 7.1 g/dL (6.4-8.2)
[2025-01-15 17:46] LABS: Magnesium, Blood 1.9 mg/dL (1.6-2.4); Phosphorus, Blood 5.2 mg/dL (2.5-4.9)
[2025-01-15] MEDS ORDERED: Insulin Human Regular 100 UNIT in NS 100 ML IV SCH (18:15)
[2025-01-15] MEDS ORDERED: NS KCl 20mEq 1,000 ML IV SCH (18:15)
[2025-01-15] MEDS ORDERED: Ondansetron HCl 2 MG / ML 2ML Vial IV PRN (18:45)
[2025-01-15] MEDS ORDERED: Enoxaparin 40 MG/0.4 ML SYR SC SCH (19:00)
[2025-01-15 20:46] LABS: Bun/Creatinine Ratio 33.7 (12.0-20.0); Creatinine, Blood 0.98 mg/dL (0.40-1.00)
[2025-01-15 20:48] LABS: Calcium, Blood 7.1 mg/dL (8.5-10.1); Potassium, Blood 8.6 mmol/L (3.5-5.5)
[2025-01-15 21:43] LABS: Bun/Creatinine Ratio 31.7 (12.0-20.0); Calcium, Blood 8.5 mg/dL (8.5-10.1); Creatinine, Blood 1.2 mg/dL (0.40-1.00)
[2025-01-15 21:44] LABS: Potassium, Blood 5.1 mmol/L (3.5-5.5)
[2025-01-15 23:32] LABS: Source, Urine Clean Catch
[2025-01-15 23:48] LABS: Bilirubin, Urine Neg (Neg); Blood, Urine 1+ (Neg); Glucose Qualitative, Urine 4+ (Neg); Ketones, Urine 3+ (Neg); Leukocyte Esterase, Urine Neg (Neg); Nitrite, Urine Neg (Neg); Protein, Urine 2+ (Neg); Urobilinogen, Urine NORM (Normal)
[2025-01-15 23:54] LABS: Appearance, Urine Clear (Clear); Color, Urine Yellow (P-Yellow)
[2025-01-15 23:56] LABS: Bacteria Few /hpf; Granular Casts 0-2 /lpf (0); Hyaline Casts 0-2 /lpf (0-2); Red Blood Cells, Urine 0-2 /hpf (0-2); Squamous Epithelial Cells Few /hpf (Few); White Blood Cells, Urine 0-2 /hpf (0-5)
[2025-01-16] VITALS (19 sets, daily range): BP systolic 90–148; BP diastolic 47–99
[2025-01-16] MEDS ORDERED: REPATHA SU140 MG/1 M SQ (00:07)
[2025-01-16] MEDS ORDERED: BRUKINSA80 MG PO (00:08)
[2025-01-16 00:26] LABS: Bun/Creatinine Ratio 33.3 (12.0-20.0); Calcium, Blood 8.1 mg/dL (8.5-10.1); Creatinine, Blood 1.2 mg/dL (0.40-1.00); Potassium, Blood 4.6 mmol/L (3.5-5.5)
[2025-01-16] MEDS ORDERED: D5W-1/2NS KCl 20mEq 1,000 ML IV SCH (03:45)
--- NOTE | 2025-01-16 06:00 | NUR ---
PT ADMITTED TO ICU FROM ED AND TRANSFERRED FROM STRETCHER TO BED INDEPENDENTLY. PT AOX4, CALM AND COOPERATIVE. PT ABLE TO MAKE NEEDS KNOWN. VITAL SIGNS STABLE THROUGHOUT SHIFT. BLOOD SUGAR IMPROVING ON INSULIN INFUSION. D5 1/2NS W/20MEQ KCL ALSO INFUSING AT THIS TIME. CBG CHECKS Q1 HOUR. PT IS [place] BUT OTHERWISE NO COMMMUNICATION DEFICIT. PT HAS HEARING AIDS BUT ARE WITHOUT POWER AT THIS TIME. PT REMAINS NPO.
[2025-01-16 06:20] LABS: BASOPHILS ABSOLUTE AUTO 0.02 K/mm3 (0.00-0.23); BASOPHILS PERCENT AUTO 0 % (0-2); EOSINOPHILS ABSOLUTE AUTO 0.01 K/mm3 (0.00-0.68); EOSINOPHILS PERCENT AUTO 0 % (0-6); Hematocrit 25.6 % (33.0-51.0); Hemoglobin 8.4 g/dL (11.5-16.0); IMMATURE GRAN ABSOLUTE AUTO 0.05 K/mm3 (0.00-0.10); IMMATURE GRAN PERCENT AUTO 1 % (0-1); LYMPHOCYTES ABSOLUTE AUTO 1.46 K/mm3 (0.84-5.20); LYMPHOCYTES PERCENT AUTO 14 % (21-46); MONOCYTES ABSOLUTE AUTO 0.88 K/mm3 (0.16-1.47); MONOCYTES PERCENT AUTO 9 % (4-13); Mean Corpuscular HGB 32.3 pg (26.0-34.0); Mean Corpuscular HGB Conc 32.8 g/dL (31.5-36.5); Mean Corpuscular Volume 99 fL (80-100); Mean Platelet Volume 11.3 fL (9.1-12.4); NEUTROPHILS ABSOLUTE AUTO 7.74 K/mm3 (1.96-9.15); NEUTROPHILS PERCENT AUTO 76 % (41-73); Platelet Count 92 K/mm3 (150-400); RDW Coefficient Variation 12.6 % (11.7-14.2); RDW Standard Deviation 45.1 fL (35.1-46.3); White Blood Cell Count 10.16 K/mm3 (4.00-11.30)
[2025-01-16 06:49] LABS: Albumin, Blood 2.5 g/dL (3.4-5.0); Albumin/Globulin Ratio 0.8 (0.8-1.8); Bilirubin, Total 0.5 mg/dL (0.1-1.0); Bun/Creatinine Ratio 33.3 (12.0-20.0); Creatinine, Blood 1.08 mg/dL (0.40-1.00); Potassium, Blood 4.8 mmol/L (3.5-5.5); Total Protein, Blood 5.5 g/dL (6.4-8.2)
[2025-01-16] MEDS ORDERED: Insulin Glargine-Yfgn 100 Unit/mL 3 ML SYR SC ONE (08:00)
--- NOTE | 2025-01-16 10:30 | NUR ---
AM NOTE/UPDATE: PT HAS BEEN A&Ox4, COOPERATIVE W/CARE, [facility], ABLE TO MAKE NEEDS KNOWN. PT DENIES SOB, O2 SATS >95% ON RA. PT DENIES CHEST PAIN, SR ON MONITOR. INSULIN AND D5 1/2 NS W/ 20 MEQ KCL INFUSED AND MONITORED VIA Q1H BLOOD GLUCOSE CHECKS. BOTH INFUSIONS DC'd AT 1022 PER ORDERS, BLOOD GLUCOSE CHECKS TO BECOME ACHS PER ORDERS. PT TOLERATING WELL, DENIES ANY COMPLAINTS. PT IS SBA WHEN OOB FOR CORD/LINE MANAGEMENT.
[2025-01-16] MEDS ORDERED: Insulin Human Lispro 100 Units/ML 3ML Syringe SC SCH ×2 (11:30→12:00)
[2025-01-16 12:32] LABS: Calcium, Blood 8.2 mg/dL (8.5-10.1); Creatinine, Blood 0.97 mg/dL (0.40-1.00); Potassium, Blood 4.5 mmol/L (3.5-5.5)
--- NOTE | 2025-01-16 15:31 | NUR ---
Pt originally stated she would like to clane up with the bath wipes. After getting up to use the toilet pt changed her mind and stated she changed her mind about a bath. call light in reach. RN in room.
--- NOTE | 2025-01-16 17:08 | NUR ---
SHIFT SUMMARY/TRANSFER: NO ACUTE CHANGES SINCE INITIAL NOTE. PT CONTINUES A&Ox4, RA SATS >95%, DENIES SOB OR CP, SR ON MONITOR W/RATE 74. ACHS BLOOD GLUCOSE CHECKS AND INSULIN ADMINISTRATION PER ORDERS. PT AMBULATED F/BED TO BATHROOM W/SBA AND WAS ABLE TO HAVE A LARGE UNMEASURED VOID. PT ADMISSION STATUS CHANGED TO MEDICAL, NEW BED ASSIGNMENT RECEIVED AND REPORT GIVEN TO VAISHNAVI JEAN. PT WILL BE TRANSFERED UPON COMPLETION OF DINNER.
--- NOTE | 2025-01-16 17:54 | NUR ---
PT HAS BEEN TRANSFERED TO MEDICAL DEPT.
--- NOTE | 2025-01-16 18:16 | NUR ---
PT RECEIVED TO RUBY TRACY TALKING. DAUGHTER AT BEDSIDE. DENIES PAIN. ALREADY ATE IN ICU. MEDS PLACED IN DRAWER. NO OTHER CONCERNS NOTED. BED IN LOW POSITION, CALL LITE IN REACH, CALLS APPROP
[2025-01-16 18:46] LABS: Bun/Creatinine Ratio 35.3 (12.0-20.0); Calcium, Blood 8.6 mg/dL (8.5-10.1); Creatinine, Blood 1.02 mg/dL (0.40-1.00); Potassium, Blood 4.1 mmol/L (3.5-5.5)
[2025-01-17 03:28] VITALS: BP 164/63
[2025-01-17] MEDS ORDERED: Omeprazole 20 MG CapCR PO SCH (06:00)
[2025-01-17 07:33] VITALS: BP 160/84
[2025-01-17] MEDS ORDERED: Metoprolol Succinate 25 MG TABCR PO SCH (09:00)
[2025-01-17 10:59] VITALS: BP 154/70
--- NOTE | 2025-01-17 18:03 | NUR ---
LATE ENTRY: DISCHARGE NOTE: PT WAS DISCHARGED TO CARE OF HER . SHE WAS ESCORTED OUT OF HOSPITAL, WITH ALL PERSONAL BELONGINGS, IN A WHEELCHAIR PROPELLED BY VALENTIN. IV'S REMOVED BY VALENTIN PARRA. NO NEW DISCHARGE MEDICATIONS. VAISHNAVI CORONEL REVIEWED DISCHARGE INSTRUCTIONS WITH PT, INCLUDING APPTS TO KEEP AND SUBQ INSULIN REGIMEN UNTIL PT'S INSULIN PUMP THERAPY CAN BE RESTARTED. PT STATED SHE UNDERSTOOD ALL INSTRUCTIONS WITH NO QUESTIONS. PT TOLERATED DISCHARGE PROCEDURE WELL.
== END 2025-01-17 15:30 | disposition home or self-care (01) | DRG 919 ==
LOC: ER 16:08 → ERHOLD 16:09 → ICUE 23:43 → MEDS 01-16 17:28
PROVIDERS: Student in an Organized Health Care Education/Training Program; ADMIT Internal Medicine
DX: T85.614A Breakdown (mechanical) of insulin pump, initial encounter (principal); E10.10 Type 1 diabetes mellitus with ketoacidosis without coma; N17.9 Acute kidney failure, unspecified; I25.10 Atherosclerotic heart disease of native coronary artery without angina pectoris; I10 Essential (primary) hypertension; K21.9 Gastro-esophageal reflux disease without esophagitis; M81.0 Age-related osteoporosis without current pathological fracture; Z96.611 Presence of right artificial shoulder joint; I45.10 Unspecified right bundle-branch block; E86.0 Dehydration; C88.00 Waldenstrom macroglobulinemia not having achieved remission; Z79.4 Long term (current) use of insulin; Z98.890 Other specified postprocedural states; Z79.899 Other long term (current) drug therapy; Z79.85 Long-term (current) use of injectable non-insulin antidiabetic drugs; Z87.720 Personal history of (corrected) congenital malformations of eye; Z85.528 Personal history of other malignant neoplasm of kidney; Z98.49 Cataract extraction status, unspecified eye; Z95.1 Presence of aortocoronary bypass graft; Z90.5 Acquired absence of kidney; Z79.82 Long term (current) use of aspirin; Z88.8 Allergy status to other drugs, medicaments and biological substances; Y84.9 Medical procedure, unspecified as the cause of abnormal reaction of the patient, or of later complication, without mention of misadventure at the time of the procedure
CPT/HCPCS: 36415; 71046; 80048; 80053; 81001; 82803; 82947; 83690; 83735; 83880; 84100; 85025; 93005; 93010; 96361; 96365; 96366; 96372; 96375; 99285-25; A9270; G0378; J1650; J1815; J2405; J3480; J7030; J7120

== ENCOUNTER 2025-02-20 15:39 | Inpatient (IN) | payer OTHER ==
[2025-02-20] VITALS (13 sets, daily range): BP systolic 89–121; BP diastolic 46–58
[~2025-02-20] VITALS: Ht 160 cm; Wt 44.2 kg
[~2025-02-20 15:39] MED LIST changes: +BRUKINSA80 MG PO; +REPATHA SU140 MG/1 M SQ
[2025-02-20] MEDS ORDERED: Ondansetron HCl 2 MG / ML 2ML Vial IV ONE (15:50)
[2025-02-20] MEDS ORDERED: NS 1,000 ML IV SCH ×2 (15:50→18:35)
[2025-02-20] MEDS ORDERED: INSULIN AS100 UNIT/7 (16:06)
[2025-02-20 16:18] LABS: BASOPHILS ABSOLUTE AUTO 0.06 K/mm3 (0.00-0.23); BASOPHILS PERCENT AUTO 1 % (0-2); EOSINOPHILS ABSOLUTE AUTO 0.01 K/mm3 (0.00-0.68); EOSINOPHILS PERCENT AUTO 0 % (0-6); Hematocrit 32.7 % (33.0-51.0); Hemoglobin 10.4 g/dL (11.5-16.0); IMMATURE GRAN ABSOLUTE AUTO 0.28 K/mm3 (0.00-0.10); IMMATURE GRAN PERCENT AUTO 2 % (0-1); LYMPHOCYTES ABSOLUTE AUTO 1.02 K/mm3 (0.84-5.20); LYMPHOCYTES PERCENT AUTO 8 % (21-46); MONOCYTES ABSOLUTE AUTO 0.65 K/mm3 (0.16-1.47); MONOCYTES PERCENT AUTO 5 % (4-13); Mean Corpuscular HGB 31.7 pg (26.0-34.0); Mean Corpuscular HGB Conc 31.8 g/dL (31.5-36.5); Mean Corpuscular Volume 100 fL (80-100); Mean Platelet Volume 11.7 fL (9.1-12.4); NEUTROPHILS ABSOLUTE AUTO 10.42 K/mm3 (1.96-9.15); NEUTROPHILS PERCENT AUTO 84 % (41-73); Platelet Count 160 K/mm3 (150-400); RDW Coefficient Variation 12.9 % (11.7-14.2); RDW Standard Deviation 47.6 fL (35.1-46.3); Red Blood Cell Count 3.28 M/mm3 (3.80-5.20); White Blood Cell Count 12.44 K/mm3 (4.00-11.30)
[2025-02-20 16:46] LABS: Base Excess Venous -16.9 mmol/L; Bicarbonate Venous 12.7 mmol/L (24.0-30.0); PCO2 Venous 25.6 mmHg (38-42)
[2025-02-20 16:47] LABS: pH Blood Venous 7.23 (7.34-7.37)
[2025-02-20] MEDS ORDERED: Acetaminophen 500 MG Tab PO ONE (17:10)
[2025-02-20] MEDS ORDERED: Prochlorperazine Edisylate 10 mg Vial IV ONE (17:10)
[2025-02-20 17:20] LABS: Albumin, Blood 3.1 g/dL (3.4-5.0); Albumin/Globulin Ratio 0.8 (0.8-1.8); Beta-hydroxybutyrate 67.8 mg/dL (0.2-2.8); Bilirubin, Total 1.5 mg/dL (0.1-1.0); Bun/Creatinine Ratio 39.6 (12.0-20.0); Calcium, Blood 9.3 mg/dL (8.5-10.1); Creatinine, Blood 1.01 mg/dL (0.40-1.00); Globulin, Blood 3.7 g/dL (2.2-4.0); Potassium, Blood 5.4 mmol/L (3.5-5.5); Total Protein, Blood 6.8 g/dL (6.4-8.2)
[2025-02-20] MEDS ORDERED: Insulin Human Regular 100 UNIT in NS 100 ML IV SCH ×2 (17:40→17:55)
[2025-02-20] MEDS ORDERED: Ondansetron HCl 2 MG / ML 2ML Vial IV PRN (18:35)
[2025-02-20] MEDS ORDERED: Omeprazole 20 MG CapCR PO PRN (18:40)
[2025-02-20] MEDS ORDERED: Dextrose 50% 50 ML Syringe IV PRN (18:40)
[2025-02-20] MEDS ORDERED: D5W-1/2NS 1,000 ML IV SCH (19:00)
[2025-02-20 19:18] LABS: Bun/Creatinine Ratio 33.6 (12.0-20.0); Calcium, Blood 8.8 mg/dL (8.5-10.1); Creatinine, Blood 1.25 mg/dL (0.40-1.00); Potassium, Blood 5.5 mmol/L (3.5-5.5)
[2025-02-20 20:44] LABS: Glucose, Blood 557 mg/dL (70-99)
[2025-02-20] MEDS ORDERED: TraZODone HCl 50 MG Tab PO SCH (21:00)
[2025-02-20] MEDS ORDERED: ZANUBRUTINIB 80 MG PO SCH (21:00)
[2025-02-20 21:34] LABS: Glucose, Blood 461 mg/dL (70-99)
[2025-02-20 23:06] LABS: Bun/Creatinine Ratio 34.6 (12.0-20.0); Calcium, Blood 7.8 mg/dL (8.5-10.1); Creatinine, Blood 1.3 mg/dL (0.40-1.00); Potassium, Blood 3.9 mmol/L (3.5-5.5)
[2025-02-21] VITALS (54 sets, daily range): BP systolic 84–155; BP diastolic 40–128
[2025-02-21] MEDS ORDERED: NS 1,000 ML IV SCH (00:10)
[2025-02-21] MEDS ORDERED: NS 500 ML IV ONE (00:10)
[2025-02-21 03:54] LABS: Bun/Creatinine Ratio 37.1 (12.0-20.0); Calcium, Blood 7.6 mg/dL (8.5-10.1); Creatinine, Blood 1.16 mg/dL (0.40-1.00); Potassium, Blood 3.6 mmol/L (3.5-5.5)
--- NOTE | 2025-02-21 07:18 | NUR ---
SHIFT SUMMARY PT HAS TOLERATED SHIFT AFTER BEING ADMITTED TO ICU OVERNIGHT. PT ARRIVES DROWSY BUT COMFORTABLE AND FOLLOWING COMMANDS. PT EVENTUALLY BEGAN HAVING ISSUES WITH LOW BLOOD PRESSURE. PT WAS GIVEN 500ML BOLUS OF FLUIDS WHICH DID NOT CORRECT LOW BLOOD PRESSURE. PT WAS THEN STARTED ON LEVOPHED WHICH WAS ABLE TO CONTROL BP TO MAPS > 65. PTS BLOOD SUGAR STARTED AT 675 AND BY END OF SHIFT WAS CORRECTED TO 112. AT THIS TIME, PT APPEARS COMFORTABLE IN ROOM. PT HAS NOT VOIDED THROUGH NIGHT. PT WAS PLACED ON BED BULLOCK AT SHIFT CHANGE AND AT TIME OF THIS DOCUMENTATION HAS STILL NOT BEEN ABLE TO VOID. REPORT PASSED TO DAY SHIFT TEAM.
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
[2025-02-21] MEDS ORDERED: Enoxaparin 30 MG/0.3 ML SYR SC SCH (09:00)
[2025-02-21] MEDS ORDERED: Metoprolol Succinate 25 MG TABCR PO SCH (09:00)
[2025-02-21] MEDS ORDERED: Aspirin 81 MG Chew PO SCH (09:00)
[2025-02-21 09:59] LABS: Bun/Creatinine Ratio 36.2 (12.0-20.0); Calcium, Blood 7.9 mg/dL (8.5-10.1); Creatinine, Blood 1.05 mg/dL (0.40-1.00); Magnesium, Blood 1.6 mg/dL (1.6-2.4); Potassium, Blood 3.3 mmol/L (3.5-5.5)
[2025-02-21] MEDS ORDERED: Insulin Glargine-Yfgn 100 Unit/mL 3 ML SYR SC SCH (11:00)
[2025-02-21] MEDS ORDERED: Potassium Chloride 20 MEQ TabCR PO ONE (11:00)
[2025-02-21] MEDS ORDERED: Insulin Human Lispro 100 Units/ML 3ML Syringe SC SCH (11:30)
[2025-02-21] MEDS ORDERED: NS 1,000 ML IV ONE (14:20)
[2025-02-21] MEDS ORDERED: Insulin Glargine-Yfgn 100 Unit/mL 3 ML SYR SC ONE (16:40)
[2025-02-21 17:07] LABS: Bun/Creatinine Ratio 33.6 (12.0-20.0); Calcium, Blood 7.8 mg/dL (8.5-10.1); Creatinine, Blood 1.16 mg/dL (0.40-1.00)
[2025-02-21] MEDS ORDERED: Lactated Ringer's 1,000 ML IV SCH (17:15)
--- NOTE | 2025-02-21 18:48 | NUR ---
SHIFT SUMMARY: PT IS A&OX4, VOCALIZES NEEDS AND CALL LIGHT IS WITHIN REACH. PT IS CONTINENT AND AMBULATES TO BSC WITH NURSE ASSIST. PT WAS ON LEVO THIS MORINING BUT MAP>[address] WELLS. BG WAS <130 ON INSULIN DRIP, PER DR. WELLS DC'D. BLOOD GLUCOSE HAS CONTINUED, ADMINISTERED 1000ML NS BOLUS AND NOW LR 150ML/HR. PT ON LONG ACTING AND SHORT ACTING INSULIN. OF NOW, NOT REINSTATING INSULIN DRIP. PT IS COOPERATIVE AND VOCALIZES NEEDS. WILL REPORT TO ONCOMING NURSE.
[2025-02-21 20:41] LABS: Bun/Creatinine Ratio 33.6 (12.0-20.0); Calcium, Blood 8.1 mg/dL (8.5-10.1); Creatinine, Blood 1.1 mg/dL (0.40-1.00); Potassium, Blood 4.9 mmol/L (3.5-5.5)
[2025-02-21] MEDS ORDERED: Insulin Human Lispro 100 Units/ML 3ML Syringe SC ONE (21:00)
[2025-02-21 23:28] LABS: Bun/Creatinine Ratio 40.2 (12.0-20.0); Calcium, Blood 8.2 mg/dL (8.5-10.1); Creatinine, Blood 0.95 mg/dL (0.40-1.00)
[2025-02-22] VITALS (22 sets, daily range): BP systolic 130–186; BP diastolic 56–131
[2025-02-22] MEDS ORDERED: D5W-1/2NS 1,000 ML IV SCH (05:05)
--- NOTE | 2025-02-22 05:26 | NUR ---
SHIFT SUMMARY PATEINT SLEPT THORUGH NIGHT. PATIENT VERY PLEASANT AND COOPERATIVE WITH CARE. A&OX4, SBP 140-150'S AND HR IN THE 70'S. ON ROOM AIR LUNGS CLEAR BILATERALY. PATIENT WALKS TO BEDSIDE COMMODE. PATIENT HAS POWERGLISE IN ARCENIO AND A RIGHT FOREARM 20G IV. INSULIN RUNNING @2U AND D5/45%NS RUNNING @ 125MLS. PATIENT USES CALL LIGHT TO MAKE NEEDS KNOWN. HEARAIDS IN CAFE LEAD ON COUNTER AND GLASSES ON SIDE TABLE WITH CELL PHONE. CALL LIGHT WITHIN REACH.
[2025-02-22 05:40] LABS: Calcium, Blood 8.3 mg/dL (8.5-10.1); Creatinine, Blood 0.8 mg/dL (0.40-1.00); Potassium, Blood 4.3 mmol/L (3.5-5.5)
--- NOTE | 2025-02-22 10:03 | NUR ---
ASSUMPTION OF CARE: ASSUMED CARE AT START OF SHIFT (0700). PT IS DOING WELL AND RESTING IN BED, THEY ARE A&OX4 ABLE TO FOLLOW COMMANDS. THEY ARE HARD OF HEARING WHEN THEY DON'T HAVE THEIR HEAARING AIDS IN. THEIR LUNGS ARE CLEAR AND EQUAL BILATERAL, THEY ALSO HAVE AN OCCASSIONAL NONPRODUCTIVE COUGH. SINUS RYTHM, WITH SBP: 150'S HR: 70'S. THEY HAVE A POWERGLIDE IN THEIR RUE, IT FLUSHES WELL BUT DOES NOT DRAW BLOOD. THEY DO HAVE THEIR OWN INSULIN PUMP BUT IT DOES NOT HAVE INSULIN IN IT, FAMILY IS GOING TO BRING IN MORE INSULIN FROM HOME. THEY ARE CURRENTLY ON AN INSULIN GTT PER EMR. PT IS ABLE TO USE THE BEDSIDE COMMODE WITH ASSISTACNE. LINES, AND CORDS PLACED OUT OF REACH. CALL LIGHT PLACED WITHIN REACH AND THEY WERE TOLD TO PRESS THE CALL BUTTON WHEN THEY NEED ASSISTACNE.
--- NOTE | 2025-02-22 11:39 | NUR ---
Pt. is awake in bed when she welcomes my visit. Pt. is pleasant. This drafter construction recognized the Pt. from a previous hospital visit. Facilitated an update. Considered matters of mani and belief. Pt. displayed evidence of being encouraged. Prayed for the Pt. Pt. verbalized gratitude for the spiritual care visit, and weclomed this drafter construction to return.
[2025-02-22 11:44] LABS: Bun/Creatinine Ratio 29.1 (12.0-20.0); Calcium, Blood 8.6 mg/dL (8.5-10.1); Creatinine, Blood 0.72 mg/dL (0.40-1.00)
[2025-02-22] MEDS ORDERED: Insulin Glargine-Yfgn 100 Unit/mL 3 ML SYR SC ONE (12:10)
[2025-02-22] MEDS ORDERED: Insulin Pump Cartridge MISC SC SCH (12:15)
[2025-02-22 15:12] LABS: Bun/Creatinine Ratio 27.1 (12.0-20.0); Calcium, Blood 8.7 mg/dL (8.5-10.1); Creatinine, Blood 0.66 mg/dL (0.40-1.00)
--- NOTE | 2025-02-22 18:30 | NUR ---
SHIFT SUMMARY: PT IS DOING WELL, THEY WERE ABLE TO GET UP AND SIT IN A RECLINER MOST OF THE DAY. ALERT AND ORIENTED, ABLE TO FOLLOW COMMANDS. PT STATES NO CHEST PAIN, PAIN, OR SOB AT THIS TIME. THEY HAVE BEEN ON ROOM AIR WITH SPO2 >95% THEY DO HAVE AN OCCAISIONAL NONPRODUCTIVE COUGH. SINUS RYTHM WITH SBP: 150-160'S HR: 70'S. THEIR BLOOD GLUCOSE HAS IMPROVED THROUGHOUT THE DAY, THEY WERE TAKEN OFF THE INSULIN GTT AND THEY HAVE BEEN USING THEIR PERSONAL INSULIN PUMP PLACED IN THEIR R ABDOMEN. THEY ARE ON A CONSISTENT CARB DIET AND WERE ABLE TO LUNCH AND DINNER TODAY. PT ABLE TO STAND AND WALK WITH 1-PERSON ASSIST. POWERGLIDE IN THE LUE AND PERIPHERAL IV IN R FOREARM. LINES AND CORDS, PLACED OUT OF REACH. CALL LIGHT PLACED WITHIN REACH AND TOLD TO PRESS BUTTON IF THEY NEED ASSISTANCE.
[2025-02-22 19:14] LABS: Bun/Creatinine Ratio 31.1 (12.0-20.0); Creatinine, Blood 0.64 mg/dL (0.40-1.00); Potassium, Blood 4.3 mmol/L (3.5-5.5)
--- NOTE | 2025-02-22 21:36 | NUR ---
ASSUMPTION OF CARE/ASSESSMENT: ASSUMED CARE OF PT AT 1900; BEDSIDE SHIFT REPORT RECIEVED FROM JANE, RN'S. PT IN BED, A&O X 4, PLEASANT AND COOPERATIVE WITH CARE. PT ABLE TO AMBULATE TO TOILET INDEPENDENTLY WITH SBA FOR CORDS/LINES. PT ON RA, LUNGS CLEAR T/O AND DENIES SOB. PT SR ON MONITOR WITH HR 70-80'S, SBP 140-160, AND DENIES CHEST PAIN/PRESSURE. ABD SOFT, NON-TENDER AND TOLERATES PO INTAKE. PT MAEW, INDEPENDENT BED MOBILITY. PIV TO RFA THAT IS PATENT AND SALINE LOCKED; PG TO MARILYNN THAT IS PATENT, DOES NOT DRAW BACK AND IS SALINE LOCKED. BED LOWERED, CALL LIGHT IN REACH.
[2025-02-23] VITALS (14 sets, daily range): BP systolic 115–172; BP diastolic 61–112
[2025-02-23 04:14] LABS: BASOPHILS ABSOLUTE AUTO 0.02 K/mm3 (0.00-0.23); BASOPHILS PERCENT AUTO 0 % (0-2); EOSINOPHILS PERCENT AUTO 2 % (0-6); Hemoglobin 8.2 g/dL (11.5-16.0); IMMATURE GRAN ABSOLUTE AUTO 0.06 K/mm3 (0.00-0.10); IMMATURE GRAN PERCENT AUTO 1 % (0-1); LYMPHOCYTES PERCENT AUTO 20 % (21-46); MONOCYTES ABSOLUTE AUTO 0.62 K/mm3 (0.16-1.47); MONOCYTES PERCENT AUTO 13 % (4-13); Mean Corpuscular HGB 31.9 pg (26.0-34.0); Mean Corpuscular HGB Conc 32.8 g/dL (31.5-36.5); Mean Corpuscular Volume 97 fL (80-100); NEUTROPHILS ABSOLUTE AUTO 3.11 K/mm3 (1.96-9.15); NEUTROPHILS PERCENT AUTO 63 % (41-73); Platelet Count 62 K/mm3 (150-400); RDW Coefficient Variation 13.6 % (11.7-14.2); RDW Standard Deviation 48.4 fL (35.1-46.3); Red Blood Cell Count 2.57 M/mm3 (3.80-5.20); White Blood Cell Count 4.91 K/mm3 (4.00-11.30)
[2025-02-23 04:25] LABS: Albumin/Globulin Ratio 0.6 (0.8-1.8); Bilirubin, Total 0.7 mg/dL (0.1-1.0); Bun/Creatinine Ratio 26.2 (12.0-20.0); Calcium, Blood 8.4 mg/dL (8.5-10.1); Creatinine, Blood 0.61 mg/dL (0.40-1.00); Globulin, Blood 3.2 g/dL (2.2-4.0); Potassium, Blood 3.7 mmol/L (3.5-5.5); Total Protein, Blood 5.2 g/dL (6.4-8.2)
--- NOTE | 2025-02-23 05:46 | NUR ---
SHIFT SUMMARY: NO ACUTE CHANGES OVERNIGHT; VSS THROUGHOUT THE NIGHT. PT UP EVERY TWO HOURS TO VOID; GOOD URINE OUTPUT. PT CONTINUES WITH INSULIN PUMP IN RLQ; DKA REMAINS RESOLVED. PT DEXCOM SEEMS TO BE MALFUNCTIONING AGAIN; THIS MORNING THERE WERE FREQUENT NOTIFICATIONS FROM THE DEXCOM THAT THE PATIENT CBG WAS CRITICALLY LOW. WHEN CHECKED BY HOSPITAL GLUCOMETER PT'S CBG WNL. PT UPDATED AND PLANS ON DISCUSSING WITH DAUGHTER TO HELP TROUBLESHOOT RECALIBRATING DEXCOM. PT DID DRINK 4 OX APPLE JUICE WHEN CBG READING AT 80. BED LOWERED, CALL LIGHT IN REACH.
--- NOTE | 2025-02-23 09:08 | NUR ---
ASSUMPTION OF CARE: ASSUMED CARE AT SATRT OF SHIFT (0700). PT IS DOING WELL AND RESTING COMFORTABLY IN BED. THEY ARE ALERT AND ORIENTED, ABLE TO FOLLOW COMMANDS. PT STATES NO CHEST PAIN, SOB, OR PAIN AT THIS TIME. LUNG SOUNDS ARE CLEAR AND EQUAL BILATERAL, ON ROOM AIR WITH SPO2 >95%. SINUS RYTHM WITH SBP:140'S MAP>65 HR:80-90'S. POWERGLIDE LUE AND PERIPHERAL IV R FOREARM. PERSONAL INSULIN PUMP IN RLQ AND DEXECOM IN THE L UPPER ARM. DEXICOM MIGHT NOT BE CALIBRATED CORRECTTLY AND NOT SYNCING WITH INSULIN PUMP. THEY ARE ABLE TO STAND AND WALK VIA 1-PERSON ASSIST AND ABLE TO USE COMMODE WITHOUT ISSUE. LINES AND CORDS PLACED OUT OF REACH. CALL LIGHT PLACED WITHIN REACH AND THEY WERE TOLD TO PRESS THE BUTTON WHEN THEY NEED ASSISTANCE.
--- NOTE | 2025-02-23 14:35 | NUR ---
DISCHARGE NOTE: PT DISCHARGED HOME TO FAMILY AT 1425. IV'S REMOVED AND PT WAS DRESSED IN THEIR CLOTHES. PT WAS GIVEN BACK ALL BELONGINGS AND DISCHARGE EDUCATION WAS PROVIDED TO PT AND FAMILY AT BEDSIDE. PT TRANSFERRED TO WHEELCHAIR AND TAKEN TO HOSPITAL ENTRANCE, PT'S WAS THERE TO CHURCH COMMUNICATIONS ADMINISTRATOR PT AND TAKE THEM HOME.
[2025-02-27] MEDS ORDERED: EVOLOCUMAB 140 MG/ML SC SCH (09:00)
== END 2025-02-23 14:18 | disposition home or self-care (01) | DRG 638 ==
LOC: ER 15:39 → ERHOLD 18:34 → ICUE 19:30
PROVIDERS: Internal Medicine; Nurse Practitioner Acute Care; Physician Assistant; ADMIT Internal Medicine
DX: E10.10 Type 1 diabetes mellitus with ketoacidosis without coma (principal); E44.0 Moderate protein-calorie malnutrition; R65.10 Systemic inflammatory response syndrome (SIRS) of non-infectious origin without acute organ dysfunction; I25.10 Atherosclerotic heart disease of native coronary artery without angina pectoris; I95.9 Hypotension, unspecified; C88.00 Waldenstrom macroglobulinemia not having achieved remission; I10 Essential (primary) hypertension; K21.9 Gastro-esophageal reflux disease without esophagitis; Z96.41 Presence of insulin pump (external) (internal); Z85.528 Personal history of other malignant neoplasm of kidney; Z68.21 Body mass index [BMI] 21.0-21.9, adult; Z79.4 Long term (current) use of insulin; Z88.8 Allergy status to other drugs, medicaments and biological substances; Z95.1 Presence of aortocoronary bypass graft; Z79.82 Long term (current) use of aspirin
CPT/HCPCS: 36415; 80048; 80053; 82010; 82803; 82947; 83735; 84484; 85025; 93005; 93010; 96361; 96374; 96375; 99285-25; A9270; C1751; J0780; J1650; J1815; J2405; J7030; J7040; J7042; J7060; J7120

== ENCOUNTER 2025-06-05 11:52 | Inpatient (IN) | payer OTHER ==
[2025-06-05] VITALS (7 sets, daily range): BP systolic 94–136; BP diastolic 56–73
[~2025-06-05] VITALS: Ht 139.7 cm; Wt 42.4 kg
[~2025-06-05 11:52] MED LIST changes: +INSULIN AS100 UNIT/7
[2025-06-05] MEDS ORDERED: Ondansetron HCl 2 MG / ML 2ML Vial IV ONE (12:45)
[2025-06-05 12:47] LABS: pH Blood Venous 7.35 (7.34-7.37)
[2025-06-05 14:24] LABS: BASOPHILS ABSOLUTE AUTO 0.04 K/mm3 (0.00-0.23); BASOPHILS PERCENT AUTO 0 % (0-2); EOSINOPHILS ABSOLUTE AUTO 0.01 K/mm3 (0.00-0.68); EOSINOPHILS PERCENT AUTO 0 % (0-6); Hematocrit 31.9 % (33.0-51.0); Hemoglobin 10.0 g/dL (11.5-16.0); IMMATURE GRAN ABSOLUTE AUTO 0.13 K/mm3 (0.00-0.10); IMMATURE GRAN PERCENT AUTO 1 % (0-1); LYMPHOCYTES ABSOLUTE AUTO 0.61 K/mm3 (0.84-5.20); LYMPHOCYTES PERCENT AUTO 6 % (21-46); MONOCYTES ABSOLUTE AUTO 0.41 K/mm3 (0.16-1.47); MONOCYTES PERCENT AUTO 4 % (4-13); Mean Corpuscular HGB Conc 31.3 g/dL (31.5-36.5); Mean Corpuscular Volume 101 fL (80-100); NEUTROPHILS ABSOLUTE AUTO 8.68 K/mm3 (1.96-9.15); NEUTROPHILS PERCENT AUTO 88 % (41-73); NRBC ABSOLUTE 0.00 K/mm3 (0.00-0.02); NRBC Auto 0.0 /100 WBC (0.0-0.2); Platelet Count 155 K/mm3 (150-400); RDW Coefficient Variation 12.9 % (11.7-14.2); RDW Standard Deviation 48.1 fL (35.1-46.3)
[2025-06-05 14:47] LABS: Magnesium, Blood 1.7 mg/dL (1.6-2.4)
[2025-06-05 14:51] LABS: Alanine Aminotransfer (ALT/SGP 83.0 U/L (12-78); Albumin, Blood 2.7 g/dL (3.4-5.0); Albumin/Globulin Ratio 0.7 (0.8-1.8); Anion Gap 19.0 mmol/L (3-11); Aspartate Aminotrans (AST/SGOT 58.0 U/L (12-37); Bilirubin, Total 1.6 mg/dL (0.1-1.0); Blood Urea Nitrogen 34.0 mg/dL (8-24); CO2, Blood 18.0 mmol/L (21-32); Calcium, Blood 9.2 mg/dL (8.5-10.1); Chloride, Blood 97.0 mmol/L (98-108); Creatinine, Blood 1.06 mg/dL (0.40-1.00); Globulin, Blood 3.7 g/dL (2.2-4.0); Glucose, Blood 733.0 mg/dL (70-99); Phosphorus, Blood 5.5 mg/dL (2.5-4.9); Potassium, Blood 5.8 mmol/L (3.5-5.5); Sodium, Blood 128.0 mmol/L (136-145); Total Protein, Blood 6.4 g/dL (6.4-8.2)
[2025-06-05] MEDS ORDERED: Insulin Human Regular 100 UNIT in NS 100 ML IV SCH (15:00)
[2025-06-05] MEDS ORDERED: Metoclopramide HCl 5MG / ML 2ML Vial IV ONE (15:45)
[2025-06-05] MEDS ORDERED: Insulin Regular 100 Unit/ML 1ML Dose IV ONE (15:55)
[2025-06-05] MEDS ORDERED: Metoclopramide HCl 5MG / ML 2ML Vial IV PRN (16:15)
[2025-06-05 17:48] LABS: Glucose, Blood 689 mg/dL (70-99)
[2025-06-05 17:52] LABS: Calcium, Ionized (POC) 1.14 mmol/L (1.10-1.46); Chloride (POC) 100 mmol/L (98-108); Creatinine (POC) 1.2 mg/dL (0.6-1.0); Glucose (ISTAT POC) 635 mg/dL (70-99); Hematocrit (POC) 30.0 % (36.0-46.0); Hemoglobin (POC) 10.2 g/dL (12.0-16.0); Potassium (POC) 5.0 mmol/L (3.5-5.5); Sodium (POC) 132 mmol/L (135-148); Total CO2 (POC) 14 mmol/L (21-32)
--- NOTE | 2025-06-05 18:30 | NUR ---
PT ARRIVED IN ICU AT 181. INSULIN GTT RUNNING AT 4ML/HR. NEURO: A/O X4, MOVES EXTREMITIES WELL CARDIAC, VSS SBP 120S HR 60-70S. NO CP PULM: LUNGS CLEAR TO AUSCULATION, DENIES COUGH GI: ABDO SOFT/NON TENDER, NORMOACTIVE BOWEL TONES. LAST BM 06/05/25 : CONTINENT OF URINE, PUREWICK PLACED. SKIN: INTACT, 2RN SKIN CHECK WITH TARIQ RIGGINSPRODUCTION GENERALIST UPDATED AND AT BEDSIDE.
[2025-06-05 19:31] LABS: Glucose, Blood 583 mg/dL (70-99)
[2025-06-05 20:53] LABS: Anion Gap 16.0 mmol/L (3-11); Blood Urea Nitrogen 36.0 mg/dL (8-24); CO2, Blood 19.0 mmol/L (21-32); Calcium, Blood 9.1 mg/dL (8.5-10.1); Chloride, Blood 103.0 mmol/L (98-108); Creatinine, Blood 1.13 mg/dL (0.40-1.00); Glucose, Blood 483.0 mg/dL (70-99); Potassium, Blood 4.4 mmol/L (3.5-5.5); Sodium, Blood 134.0 mmol/L (136-145)
[2025-06-05] MEDS ORDERED: ZANUBRUTINIB PO SCH (21:00)
[2025-06-05] MEDS ORDERED: Potassium Chl 20MEQ/Water100ML 100 ML IV STA (21:06)
[2025-06-05 22:23] LABS: Anion Gap 12.0 mmol/L (3-11); Blood Urea Nitrogen 37.0 mg/dL (8-24); CO2, Blood 23.0 mmol/L (21-32); Calcium, Blood 8.6 mg/dL (8.5-10.1); Chloride, Blood 104.0 mmol/L (98-108); Creatinine, Blood 1.08 mg/dL (0.40-1.00); Glucose, Blood 301.0 mg/dL (70-99); Potassium, Blood 4.2 mmol/L (3.5-5.5); Sodium, Blood 135.0 mmol/L (136-145)
[2025-06-05] MEDS ORDERED: D5W-1/2NS 1,000 ML IV SCH (23:20)
[2025-06-06] VITALS (9 sets, daily range): BP systolic 93–149; BP diastolic 48–78
[2025-06-06 02:27] LABS: BASOPHILS ABSOLUTE AUTO 0.02 K/mm3 (0.00-0.23); BASOPHILS PERCENT AUTO 0 % (0-2); EOSINOPHILS ABSOLUTE AUTO 0.01 K/mm3 (0.00-0.68); EOSINOPHILS PERCENT AUTO 0 % (0-6); Hematocrit 26.1 % (33.0-51.0); Hemoglobin 8.7 g/dL (11.5-16.0); IMMATURE GRAN ABSOLUTE AUTO 0.08 K/mm3 (0.00-0.10); IMMATURE GRAN PERCENT AUTO 1 % (0-1); LYMPHOCYTES ABSOLUTE AUTO 1.08 K/mm3 (0.84-5.20); LYMPHOCYTES PERCENT AUTO 9 % (21-46); MONOCYTES ABSOLUTE AUTO 1.07 K/mm3 (0.16-1.47); MONOCYTES PERCENT AUTO 9 % (4-13); Mean Corpuscular HGB Conc 33.3 g/dL (31.5-36.5); NEUTROPHILS ABSOLUTE AUTO 9.87 K/mm3 (1.96-9.15); NEUTROPHILS PERCENT AUTO 81 % (41-73); NRBC ABSOLUTE 0.00 K/mm3 (0.00-0.02); NRBC Auto 0.0 /100 WBC (0.0-0.2); Platelet Count 136 K/mm3 (150-400); RDW Coefficient Variation 13.2 % (11.7-14.2); RDW Standard Deviation 45.1 fL (35.1-46.3)
[2025-06-06 02:33] LABS: Mean Corpuscular Volume 95 fL (80-100)
[2025-06-06 02:44] LABS: Anion Gap 8.0 mmol/L (3-11); Blood Urea Nitrogen 34.0 mg/dL (8-24); CO2, Blood 26.0 mmol/L (21-32); Calcium, Blood 8.4 mg/dL (8.5-10.1); Chloride, Blood 105.0 mmol/L (98-108); Creatinine, Blood 1.05 mg/dL (0.40-1.00); Glucose, Blood 205.0 mg/dL (70-99); Potassium, Blood 4.4 mmol/L (3.5-5.5); Sodium, Blood 135.0 mmol/L (136-145)
[2025-06-06 02:49] LABS: Magnesium, Blood 1.5 mg/dL (1.6-2.4)
[2025-06-06 02:57] LABS: Phosphorus, Blood 2.3 mg/dL (2.5-4.9)
[2025-06-06] MEDS ORDERED: Magnesium Sulf 2 GM/Water 50ML 50 ML IV ONE ×2 (03:15→07:30)
[2025-06-06 07:00] LABS: Anion Gap 8.0 mmol/L (3-11); Blood Urea Nitrogen 31.0 mg/dL (8-24); CO2, Blood 26.0 mmol/L (21-32); Calcium, Blood 8.6 mg/dL (8.5-10.1); Chloride, Blood 104.0 mmol/L (98-108); Creatinine, Blood 0.99 mg/dL (0.40-1.00); Glucose, Blood 163.0 mg/dL (70-99); Potassium, Blood 3.8 mmol/L (3.5-5.5); Sodium, Blood 134.0 mmol/L (136-145)
[2025-06-06 07:19] LABS: Magnesium, Blood 2.7 mg/dL (1.6-2.4); Phosphorus, Blood 2.4 mg/dL (2.5-4.9)
[2025-06-06] MEDS ORDERED: Potassium Phosphate Dibasic 20 MM in Dextrose 5% 500 ML IV ONE (07:30)
[2025-06-06] MEDS ORDERED: Potassium Phosphate Dibasic 20 MM in Dextrose 5% 500 ML IV STA (07:43)
[2025-06-06] MEDS ORDERED: Insulin Human Lispro 100 Units/ML 3ML Syringe SC SCH ×2 (08:30→11:30)
[2025-06-06] MEDS ORDERED: Insulin Glargine,Hum.Rec.Anlog 100 UNIT/ML 3MLSYR SC SCH (09:00)
[2025-06-06] MEDS ORDERED: Enoxaparin 30 MG/0.3 ML SYR SC SCH (09:00)
[2025-06-06 11:03] LABS: Anion Gap 9.0 mmol/L (3-11); Blood Urea Nitrogen 29.0 mg/dL (8-24); CO2, Blood 24.0 mmol/L (21-32); Calcium, Blood 8.4 mg/dL (8.5-10.1); Chloride, Blood 103.0 mmol/L (98-108); Creatinine, Blood 0.95 mg/dL (0.40-1.00); Glucose, Blood 183.0 mg/dL (70-99); Potassium, Blood 4.2 mmol/L (3.5-5.5); Sodium, Blood 132.0 mmol/L (136-145)
--- NOTE | 2025-06-06 11:10 | NUR ---
REPORT CALLED TO ROOM 313 NURSE. PT TO BE TRANSPORTED TO FLOOR VIA W/C.
--- NOTE | 2025-06-06 11:40 | NUR ---
TRANSFER SUMMARY PT TAKEN TO ROOM 313 VIA W/C BY SHANTI RIGGINS. 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
[2025-06-06] MEDS ORDERED: Potassium Chl 20MEQ/Water100ML 100 ML IV SCH (12:00)
--- NOTE | 2025-06-06 12:01 | NUR ---
PT TRANSFERED FROM ICU 5 TO ROOM 313. PT ARRIVED VIA WHEELCHAIR. PT NOTED NOTED TO HAVE A UNSTEADY GAIT REQUIRING ASSISTANCE. PT NOTED TO BE ON ROOM AIR. LUNGS CLEAR THROUGHOUT. BOWEL SOUNDS X4 LAST BM 06/06. IV'S NOTED TO L HAND SALINE LOCKED, R WRIST INFUSING @125ML/HR. PT NOTED TO HAVE SWELLING IN R HAND PATIENT STATED " THATS NORMAL IT IS ACTUALLY BETTER THAN IT USUALLY IS". PT NOTED TO HAVE GLASSES AND HEARING AIDS. PT NOTED TO BE ELY SHOSHONE HER BATTERIES ARE .
[2025-06-06] MEDS ORDERED: NS 250 ML IV PRN (12:15)
--- NOTE | 2025-06-07 03:27 | NUR ---
SHIFT SUMMARY NO ACUTE EVENDS DURING THIS SHIFT. HS B. INSULIN ADMINISTEED ORDERED. PT DENIES PAIN AND DISCOMFORT. PT DENIES N.V/SOB/CP OR PRESSURE. PER PT REPORT PT TAKEN OUT THE INSULIN PUMP AND DEGADRON GLUCVOSE MONITOR. BED AT THE LOWEST POSITION, CALL LIGHT W/I REACH. PT IS A/O X4, AND ANLE TO ADOCATE HER NEEDS.
--- NOTE | 2025-06-07 04:11 | NUR ---
SHIFT SUMMARY NO ACUTE EVENTS DURING THIS SHIFT. PT DENIES PAIN AND DISCOMFORT. HS BG 299. PER PREVIOUS SHIFT RN REPORT, PT IS NO LONGER USING HER INSULIN PUMP OR HER GLUCOMONITOR. PT IS A/O X4, [place], PLEASANT AND COOPERATIVE WITH CARE. PT RESTING WELL T/O THE NIGHT. NO ACUTE DISTRESS NOTED DURING THI SHIFT. BED AT THE LOWEST POSITION, CALL LIGHT W/I REACH. PT IS ABLE TO MAKE HER NEEDS KNOWN.
[2025-06-07 05:32] LABS: BASOPHILS ABSOLUTE AUTO 0.03 K/mm3 (0.00-0.23); BASOPHILS PERCENT AUTO 1 % (0-2); EOSINOPHILS ABSOLUTE AUTO 0.09 K/mm3 (0.00-0.68); EOSINOPHILS PERCENT AUTO 2 % (0-6); Hematocrit 29.3 % (33.0-51.0); Hemoglobin 9.6 g/dL (11.5-16.0); IMMATURE GRAN ABSOLUTE AUTO 0.04 K/mm3 (0.00-0.10); IMMATURE GRAN PERCENT AUTO 1 % (0-1); LYMPHOCYTES ABSOLUTE AUTO 1.31 K/mm3 (0.84-5.20); LYMPHOCYTES PERCENT AUTO 22 % (21-46); MONOCYTES ABSOLUTE AUTO 0.55 K/mm3 (0.16-1.47); MONOCYTES PERCENT AUTO 9 % (4-13); Mean Corpuscular HGB Conc 32.8 g/dL (31.5-36.5); Mean Corpuscular Volume 96 fL (80-100); NEUTROPHILS ABSOLUTE AUTO 3.83 K/mm3 (1.96-9.15); NEUTROPHILS PERCENT AUTO 66 % (41-73); NRBC ABSOLUTE 0.00 K/mm3 (0.00-0.02); NRBC Auto 0.0 /100 WBC (0.0-0.2); Platelet Count 115 K/mm3 (150-400); RDW Coefficient Variation 13.2 % (11.7-14.2); RDW Standard Deviation 46.4 fL (35.1-46.3)
[2025-06-07 06:02] LABS: Anion Gap 7.0 mmol/L (3-11); Blood Urea Nitrogen 22.0 mg/dL (8-24); CO2, Blood 27.0 mmol/L (21-32); Calcium, Blood 8.8 mg/dL (8.5-10.1); Chloride, Blood 108.0 mmol/L (98-108); Creatinine, Blood 0.91 mg/dL (0.40-1.00); Glucose, Blood 114.0 mg/dL (70-99); Potassium, Blood 4.3 mmol/L (3.5-5.5); Sodium, Blood 138.0 mmol/L (136-145)
[2025-06-07 07:26] VITALS: BP 170/75
[2025-06-07 07:47] VITALS: BP 176/72
--- NOTE | 2025-06-07 07:50 | NUR ---
NOTE PT BLOOD SUGAR THIS AM IS 77. NO SLIDING SCALE COVERAGE NEEDED, CALLED DR. ALEMAN TO REPORT BLOOD SUGAR, DR. ALEMAN REPORTED "HOLD GLARGINE AND 5 OF LISPRO WITH MEAL."
[2025-06-07 12:00] VITALS: BP 178/80
[2025-06-07] MEDS ORDERED: Insulin Human Lispro 100 Units/ML 3ML Syringe SC ONE (12:00)
[2025-06-07 16:49] VITALS: BP 145/80
[2025-06-07] MEDS ORDERED: BASAGLAR K100 UNIT/1 SC (17:42)
[2025-06-07] MEDS ORDERED: INSULIN LI100 UNIT/6 SC (17:42)
--- NOTE | 2025-06-07 19:53 | NUR ---
DISCHARGE NOTE PT A&OX4. ADMITTED DUE TO DKA. PT REPORTS NO CHEST PAIN/SOB/GEN PAIN. PT IS INDEPENDENT, STEADY ON FEET. PT EATS ADEQUATE. PT ACHS BLOOD SUGAR CHECK. LUNCH TIME BLOOD SUGAR WAS 350. , NOTIFIED, DR. CHAVIRA REPORTED "WILL DELAY DISCHARGE FOR NOW. GAVE VERBAL FOR COZAAR AND INSULIN, REPORT BACK WHAT EVENING BLOOD SUGAR AND BLOOD PRESSURE IS AND WE WILL CONSIDER DISCHARGE." LAST BLOOD SUGAR WAS 106. LAST BLOOD PRESSURE 145/80. NOTIFIED, COMFORTABLE WITH CONTINUING WITH DISCHARGE. PT KNOWS TO FOLLOW UP WITH PCP AND DR. BRYANT. WENT OVER DISCHARGE MEDS AND INSTRUCTIONS. MEDS FAXED TO PREF[facility]ED PHARM[facility]. PT ESCORTED TO PT ENTERANCE VIA WHEELCHAIR BY VALENTIN. IV D/C
[2025-06-08] MEDS ORDERED: HUMALOG KW100 UNIT/1 SC (10:17)
[2025-06-08] MEDS ORDERED: LOSA25 PO (10:19)
--- NOTE | 2025-06-08 10:20 | NUR ---
DISCHARGE MEDICATIONS THIS RN RECEIVED A CALL FROM ELVIN PATEL AT [facility] WITH QUESTIONS ON PT'S CORRECTION SCALE. AT THIS TIME, IT WAS NOTED THAT THE REVISED DISCHARGE MEDICATION RECONCILLIATION WAS NOT RECEIVED. THIS RN FAXED THE REVISED DISCHARGE MEDICATION RECONCILLATION. THIS RN CALLED DR. CHAVIRA TO VERIFY THE ORDER FOR LOW CS WITH 5 UNITS TID WITH MEALS IS CORRECT, AND DR. CHAVIRA REPORTED YES. THIS RN CALLED [facility] AND LEFT MESSAGE THAT THE REVISED INSULIN ORDER IS CORRECT. THIS RN CALLED AND TALKED WITH PT AND LET HER KNOW THAT THERE WERE SOME CHANGES TO HER MEDICATIONS AND ARE DIFFERENT FROM HER DISCHARGE INSTRUCTIONS SHE RECEIVED. THESE MEDICATIONS WERE DISCUSSED AND PT REPORTS UNDERSTANDING.
== END 2025-06-07 18:30 | disposition home or self-care (01) | DRG 919 ==
LOC: ER 11:52 → ICUE 16:09 → MEDS 16:09 → ICUE 17:43 → MEDS 06-06 11:55
PROVIDERS: Internal Medicine; Physician Assistant; Student in an Organized Health Care Education/Training Program; ADMIT Family Medicine
DX: T85.614A Breakdown (mechanical) of insulin pump, initial encounter (principal); E10.10 Type 1 diabetes mellitus with ketoacidosis without coma; T38.3X6A Underdosing of insulin and oral hypoglycemic [antidiabetic] drugs, initial encounter; Y82.8 Other medical devices associated with adverse incidents; I25.10 Atherosclerotic heart disease of native coronary artery without angina pectoris; K21.9 Gastro-esophageal reflux disease without esophagitis; I10 Essential (primary) hypertension; G47.00 Insomnia, unspecified; I45.10 Unspecified right bundle-branch block; I95.9 Hypotension, unspecified; C88.00 Waldenstrom macroglobulinemia not having achieved remission; Z95.1 Presence of aortocoronary bypass graft; Z85.528 Personal history of other malignant neoplasm of kidney; Z90.5 Acquired absence of kidney; Z88.8 Allergy status to other drugs, medicaments and biological substances; Z79.4 Long term (current) use of insulin; Z79.82 Long term (current) use of aspirin
CPT/HCPCS: 36415; 80047; 80048; 80053; 82010; 82803; 82947; 83735; 84100; 85014; 85025; 93005; 93010; 96361; 96374; 96375; 99285-25; A9270; J1650; J1815; J2405; J2765; J3475; J3480; J7050; J7060; J7120

== ENCOUNTER → 2025-08-04 | Outpatient (CLI) | payer OTHER ==
[~2025-08-04] MED LIST changes: +HUMALOG KW100 UNIT/1 SC; +INSULIN LI100 UNIT/6 SC; +LOSA25 PO
== END ==
LOC: LAB SHORT 17:39 → LAB 17:39
DX: L03.012 Cellulitis of left finger (principal)
CPT/HCPCS: 87070; 87077; 87147; 87186; 87205

== ENCOUNTER 2025-08-19 15:11 | Emergency (ER) | payer OTHER ==
[~2025-08-19] VITALS: Ht 139.7 cm; Wt 44.5 kg
[2025-08-19 16:51] LABS: BASOPHILS ABSOLUTE AUTO 0.03 K/mm3 (0.00-0.23); BASOPHILS PERCENT AUTO 1 % (0-2); EOSINOPHILS ABSOLUTE AUTO 0.02 K/mm3 (0.00-0.68); EOSINOPHILS PERCENT AUTO 0 % (0-6); Hematocrit 31.7 % (33.0-51.0); Hemoglobin 10.2 g/dL (11.5-16.0); IMMATURE GRAN ABSOLUTE AUTO 0.05 K/mm3 (0.00-0.10); IMMATURE GRAN PERCENT AUTO 1 % (0-1); LYMPHOCYTES ABSOLUTE AUTO 0.77 K/mm3 (0.84-5.20); LYMPHOCYTES PERCENT AUTO 15 % (21-46); MONOCYTES ABSOLUTE AUTO 0.52 K/mm3 (0.16-1.47); MONOCYTES PERCENT AUTO 10 % (4-13); Mean Corpuscular HGB Conc 32.2 g/dL (31.5-36.5); Mean Corpuscular Volume 98 fL (80-100); NEUTROPHILS ABSOLUTE AUTO 3.65 K/mm3 (1.96-9.15); NEUTROPHILS PERCENT AUTO 72 % (41-73); NRBC ABSOLUTE 0.00 K/mm3 (0.00-0.02); NRBC Auto 0.0 /100 WBC (0.0-0.2); Platelet Count 154 K/mm3 (150-400); RDW Coefficient Variation 13.6 % (11.7-14.2); RDW Standard Deviation 49.3 fL (35.1-46.3)
[2025-08-19 17:06] LABS: pH Blood Venous 7.47 (7.34-7.37)
[2025-08-19 17:32] LABS: Alanine Aminotransfer (ALT/SGP 119.0 U/L (12-78); Albumin, Blood 2.7 g/dL (3.4-5.0); Albumin/Globulin Ratio 0.7 (0.8-1.8); Anion Gap 10.0 mmol/L (3-11); Aspartate Aminotrans (AST/SGOT 152.0 U/L (12-37); Bilirubin, Total 0.6 mg/dL (0.1-1.0); Blood Urea Nitrogen 30.0 mg/dL (8-24); CO2, Blood 25.0 mmol/L (21-32); Calcium, Blood 9.1 mg/dL (8.5-10.1); Chloride, Blood 101.0 mmol/L (98-108); Creatinine, Blood 0.92 mg/dL (0.40-1.00); Globulin, Blood 3.9 g/dL (2.2-4.0); Glucose, Blood 326.0 mg/dL (70-99); Potassium, Blood 4.6 mmol/L (3.5-5.5); Sodium, Blood 131.0 mmol/L (136-145); Total Protein, Blood 6.6 g/dL (6.4-8.2)
[2025-08-19] MEDS ORDERED: Insulin Regular 100 UNIT/ML 10ML Vial SC SCH (18:45)
[2025-08-19] MEDS ORDERED: Ondansetron HCl 2 MG / ML 2ML Vial IV ONE (18:50)
[2025-08-19] MEDS ORDERED: NS 1,000 ML IV SCH (18:55)
[2025-08-19] MEDS ORDERED: Insulin Regular 100 Unit/ML 1ML Dose SC ONE (19:35)
[2025-08-19 20:30] VITALS: BP 172/79
== END 2025-08-19 21:02 | disposition home or self-care (01) ==
LOC: ER 15:11
PROVIDERS: Physician Assistant
DX: E10.65 Type 1 diabetes mellitus with hyperglycemia (principal); E86.0 Dehydration; D64.9 Anemia, unspecified; Z79.2 Long term (current) use of antibiotics; Z88.8 Allergy status to other drugs, medicaments and biological substances; Z79.82 Long term (current) use of aspirin; Z79.4 Long term (current) use of insulin; I10 Essential (primary) hypertension; K21.9 Gastro-esophageal reflux disease without esophagitis
CPT/HCPCS: 80053; 82010; 82803; 82947; 84484; 85025; 93005; 93010; 99285-25; J1815; J7030